=== PATIENT | female | born 1955 | race Caucasian/White ===

== ENCOUNTER → 2018-02-28 | Outpatient (CLI) | payer MEDICARE, BC ==
[2018-02-28 15:01] VITALS: BP 135/76; PULSE 73; BMI 20.9
--- NOTE | 2018-02-28 15:54 | P.GSHP ---
History of Present Illness H&P Date: 02/28/18 Patient is a 63 year old white female status post a lumpectomy in 2001 margins were not clear so had a re-excision and removed lymph nodes. Patient had radiation therapy. She had no chemo-therapy. She had no hormonal therapy. She had had prior biopsies for benign breast disease. Patient now complains of a lump under her right arm. It has not changed since she noted the lump. Initially there was pain associated with nodule. She has had no redness and no fever. Her last mammogram was 2011. She did not want to have the radiation exposure. No nipple discharge or changes and nothing noted in the breast. family history: 1. mother breast cancer 2. grandmother maternal: breast cancer surgical history: 1. right groin hernia 2. tonsilectomy 3. cyst left wrist 4. bunyectomy 5. bone biopsy left knee 6. right breast surgery past medical history: none menrche: 11 : 2, 2 live births first at 17, breast fed: first one menopause: 51 BCP/hormones: none ROS: HEENT: tinnitus both heart: none lung: none GI: none, has had two done last 8 years ago : none - Constitutional Constitutional: Denies chills, Denies fever - EENT Eyes: bilateral as per HPI Ears: bilateral: tinnitus Ears, nose, mouth and throat: Denies headache, Denies sore throat - Breasts Breasts: bilateral: as per HPI - Cardiovascular Cardiovascular: Denies chest pain, Denies shortness of breath - Respiratory Respiratory: Denies cough, Denies 7 - Gastrointestinal Gastrointestinal: Denies abdominal pain, Denies diarrhea, Denies nausea, Denies vomiting - Genitourinary (Female) Genitourinary: Denies dysuria, Denies hematuria - Menstruation Menstruation: Reports postmenopausal - Musculoskeletal Comment: arthritis in past Musculoskeletal: Denies myalgias - Integumentary Integumentary: Denies pruritus, Denies rash - Neurological Neurological: Denies numbness, Denies weakness - Psychiatric Psychiatric: Reports anxiety, Denies depression - Endocrine Endocrine: Denies fatigue, Denies weight change - Hematologic/Lymphatic Comment: none - Allergic/Immunologic Allergic/Immunologic: Reports seasonal allergies Past Medical History Past Medical History: Asthma, Cancer Additional Past Medical History / Comment(s): R BREAST 2002 History of Any Multi-Drug Resistant Organisms: None Reported Past Surgical History: Hernia Repair, Orthopedic Surgery, Tonsillectomy Additional Past Surgical History / Comment(s): L foot bunionectomy. L hand ganglion cyst. BREAST BX x2 Smoking Status: Never smoker - Past Family History Mother Family Medical History: Cancer Additional Family Medical History / Comment(s): breast and uterine cancer. maternal grandmother breast and colon cancer Son(s) Family Medical History: Thyroid Disorder Medications and Allergies Home Medications Medication Instructions Recorded Confirmed Type Biotin 5,000 mcg PO QAM 02/28/18 02/28/18 History Vitamin E (Dl,Tocopheryl Acet) 400 unit PO QAM 02/28/18 02/28/18 History [Vitamin E] Allergies Allergy/AdvReac Type Severity Reaction Status Date / Time grass pollen AdvReac Wheezing Unverified 02/28/18 14:57 Surgical - Exam Vital Signs Pulse BP Pulse Ox 73 135/76 98 02/28/18 14:59 02/28/18 14:59 02/28/18 14:59 - General thin moderate distress - Eyes normal ocular movement - ENT normal pinna, no hearing loss - Neck no masses, trachea midline - Respiratory normal respiratory effort, clear to auscultation - Cardiovascular Rhythm: regular Heart Sounds: normal: S1, S2 - Abdomen Abdomen: soft, non tender, no guarding, no rigid, no rebound - Integumentary no rash, no abnormal pigmentation - Neurologic no disoriented, no combative - Musculoskeletal normal gait, normal posture - Psychiatric oriented to time, oriented to person, oriented to place, speech is normal, memory intact right breast: post lumpectomy and radiation changes no masses right axilla: tightness high in axilla no masses of concern left breast: no masses left axilla: no adenopathy of concern Assessment and Plan Assessment: Impression/plan: 1. Prior history of right breast lumpectomy axillary dissection and radiation therapy 2. last mammogram 2011 3. fullness in the right axilla plan: 1. right breast and axilla ultrasound, patient refuses mammogram at this time 2. await results of ultrasound cc: Padma [place]te[place] ([place]
--- NOTE | 2018-02-28 17:07 | P.PN ---
Progress Note - Text Progress Note Date: 02/28/18 Patient underwent an ultrasound after which it was recommended she have a core biopsy of an area of concern in the axilla. The patient has agreed at this time to bilateral mammogram. This is going to be scheduled in the near future as well as ultrasound core biopsy. She will follow up after these are done. Cc: Dr. Jin
--- NOTE | 2018-03-01 08:06 | USB ---
Reason for exam: clinical finding. History: Patient is postmenopausal, has history of breast cancer at age 47, and has history of high-risk lesion on a previous biopsy at age 43. Family history of breast cancer in maternal grandmother and breast cancer in mother at age 74. Radiation therapy of the right breast, 2000. Lumpectomy of the right breast, 1999. Benign excisional biopsy of the right breast, August 03, 1998. High risk core biopsy of the right breast, July 27, 1998. Excisional biopsy of the right breast. US Breast RT Right complete breast ultrasound includes all four quadrants, the retroareolar region and axilla. Finding demonstrates a 0.9 x 1.0 x 0.6cm solid, hypoechoic lesion at the axilla and a 0.8 x 0.6 x 0.5cm solid, hypoechoic lesion at the axilla. These are rounded and hypoechoic and located adjacent to each other. The entire breast was scanned. Patient declined mammogram. These results were verbally communicated with the patient and result sheet given to the patient on 02/28/18. ASSESSMENT: Suspicious, BI-RAD 4 RECOMMENDATION: Surgical consultation and ultrasound core biopsy of the right breast. Called with mammographic findings and has scheduled an appointment for the patient for 02/28/[address] Matta. PRELIMINARY REPORT CALLED AND FAXED TO DR. MATTA ON 02/28/18.
== END | disposition home or self-care (01) ==
LOC: WWCWWP 14:48
PROVIDERS: ATTEND Surgery
DX: N64.4 Mastodynia (principal)

== ENCOUNTER → 2018-03-01 | Outpatient (CLI) | payer MEDICARE, BC ==
--- NOTE | 2018-03-04 08:51 | MM ---
Reason for exam: additional evaluation requested from prior study. Last mammogram was performed 5 years and 9 months ago. History: Patient is postmenopausal, has history of breast cancer at age 47, and has history of high-risk lesion on a previous biopsy at age 43. Family history of breast cancer in maternal grandmother and breast cancer in mother at age 74. Radiation therapy of the right breast, 2000. Lumpectomy of the right breast, 1999. Benign excisional biopsy of the right breast, August 03, 1998. High risk core biopsy of the right breast, July 27, 1998. Excisional biopsy of the right breast. Physical Findings: Breast exam performed by Dr. Matta. MG 3D Diag Mammo W/Cad SOMMER Bilateral CC and MLO view(s) were taken. Prior study comparison: June 05, 2012, CAD bilateral diagnostic mammogram. The breast tissue is heterogeneously dense. This may lower the sensitivity of mammography. Post surgical changes on the right breast. 9mm nodular asymmetry at the axilla likely corresponds to the finding on yesterday's ultrasound. 1.1cm oval focal asymmetry upper inner quadrant left breast not seen previously. It could not be identified on the MLO view. These results were verbally communicated with the patient and result sheet given to the patient on 03/01/18. ASSESSMENT: Incomplete: need additional imaging evaluation, BI-RAD 0 RECOMMENDATION: Ultrasound of the left breast. (upper inner quadrant)
--- NOTE | 2018-03-04 08:53 | USB ---
Reason for exam: additional evaluation requested from abnormal screening. History: Patient is postmenopausal, has history of breast cancer at age 47, and has history of high-risk lesion on a previous biopsy at age 43. Family history of breast cancer in maternal grandmother and breast cancer in mother at age 74. Radiation therapy of the right breast, 2000. Lumpectomy of the right breast, 1999. Benign excisional biopsy of the right breast, August 03, 1998. High risk core biopsy of the right breast, July 27, 1998. Excisional biopsy of the right breast. US Breast Limited LT Left limited breast ultrasound including focal area of concern, retroareolar and axilla demonstrates no cystic or solid lesion seen. Scanned upper inner quadrant. Right assessment, suspicious, ultrasound core axilla and surgical consult. These results were verbally communicated with the patient and result sheet given to the patient on 03/01/18. ASSESSMENT: Probably benign, BI-RAD 3 RECOMMENDATION: Follow-up diagnostic mammogram of the left breast in 6 months. Right breast recommendations made seperately. DAGMARD
== END | disposition home or self-care (01) ==
LOC: RADMAMWWP 14:06
PROVIDERS: ATTEND Surgery
DX: N63.10 Unspecified lump in the right breast, unspecified quadrant (principal); N63.20 Unspecified lump in the left breast, unspecified quadrant; R92.8 Other abnormal and inconclusive findings on diagnostic imaging of breast
CPT/HCPCS: 77066; 76642; G0279; 77062

== ENCOUNTER 2018-03-11 07:59 | Day surgery (SDC) | payer MEDICARE, BC ==
[2018-03-11 08:29] VITALS: RESP 18; TEMP 97.6
[2018-03-11 10:28] VITALS: BP 130/69; PULSE 68
--- NOTE | 2018-03-11 12:44 | US ---
EXAMINATION TYPE: US core biopsy lymph node DATE OF EXAM: 03/11/2018 HISTORY: Right axillary mass, palpable node. Correlation to prior right breast ultrasound 02/28/2018. FINDINGS: Maximal barrier technique was utilized. The skin overlying a suitable path to the patient' s right axillary nodes, mass was localized with ultrasound and the overlying skin prepped and draped. Ultrasound was utilized with sterile technique. Lidocaine was used for local anesthesia. A skin n ick was made with a scalpel. An 18-gauge needle was advanced under direct ultrasound guidance and co re specimen obtained of the mass, right axillary node. Specimen submitted in formalin to Pathology. Following the procedure, hemostasis achieved and the patient is discharged in stable condition witho ut complication. IMPRESSION:STATUS POST ULTRASOUND GUIDED CORE BIOPSY OF right axillary nodes, MASS, PATHOLOGY IS PEND ING. THIS PROCEDURE IS PERFORMED BY THE UNDERSIGNED.
== END 2018-03-11 10:25 | disposition home or self-care (01) ==
LOC: RADPROMAIN 07:59
PROVIDERS: ATTEND Surgery
DX: C77.3 Secondary and unspecified malignant neoplasm of axilla and upper limb lymph nodes (principal)
CPT/HCPCS: 38505; 76942; 88305; 88341; 88342

== ENCOUNTER → 2018-03-21 | Outpatient (CLI) | payer MEDICARE, BC ==
[2018-03-21 08:59] VITALS: BP 138/75; PULSE 67; TEMP 97.6; BMI 20.6
--- NOTE | 2018-03-21 09:25 | P.PN ---
Progress Note - Text Progress Note Date: 03/21/18 The patient is a 63-year-old white female who is status post right breast lumpectomy and node biopsy in 2001. She presented with fullness in her right axilla. A ultrasound was performed which revealed suspicious adenopathy and a core biopsy was obtained on 03/21/2018 which was positive for breast cancer. The patient at this time has no complaints related to the biopsy. Physical exam: Examination of the area of biopsy reveals no evidence of hematoma or infection Impression/plan: 1. 63-year-old white female status post right breast lumpectomy radiation therapy and node evaluation in 2001 She presents with right axillary adenopathy and core biopsy 03/11/18 positive for metastatic breast cancer. 2. Would consider metastatic workup with PET scan 3. Follow with medical and radiation oncology 4. Present case at tumor board 5. Follow up here in two weeks CC: Padma Jin
--- NOTE | 2018-03-22 14:18 | P.PN ---
Progress Note - Text Progress Note Date: 03/22/18 The patient is a 63-year-old white female status post right breast lumpectomy and node biopsy in 2001. She recently was noted to have a metastatic deposit of adenocarcinoma in a right axillary node. There is concern that she may have more widely metastatic disease.
== END | disposition home or self-care (01) ==
LOC: WWCWWP 08:47
PROVIDERS: ATTEND Surgery
DX: Z53.9 Procedure and treatment not carried out, unspecified reason (principal)

== ENCOUNTER → 2018-03-26 | Outpatient (CLI) | payer MEDICARE, BC ==
--- NOTE | 2018-03-26 14:54 | BD ---
EXAMINATION TYPE: Axial Bone Density DATE OF EXAM: 03/26/2018 COMPARISON: NONE CLINICAL HISTORY: Postmenopausal female. Osteoporosis screening. Height: 64.5 IN Weight: 120 LBS RISK FACTORS HISTORY OF: Active: YES MEDICATIONS: Additional Medications: NONE Additional History: BREAST CANCER WITH RADIATION AGE 47 EXAM MEASUREMENTS: Bone mineral densitometry was performed using the [employer] System. Bone mineral density as measured about the Lumbar spine is: ----- L1-L4(G/cm2): 0.986 T Score Values are as follows: ----- L2: -1.5 ----- L3: -1.2 ----- L4: -2.2 ----- L1-L4: -1.6 Bone mineral density BASELINE Bone mineral density about the R hip (g/cm2): 1.003 Bone mineral density about the L hip (g/cm2): 0.907 T Score values are as follows: -----R Neck: -0.3 -----L Neck: -0.9 -----R Total: -0.2 -----L Total: -0.7 Bone mineral density BASELINE IMPRESSION: Osteopenia (T Score between -2.5 and -1). There is slightly increased risk of fracture and the patient may be considered for treatment. Re-Screen 2-5 years. NOTE: T-SCORE=SD OF THE YOUNG ADULT MEAN.
== END | disposition home or self-care (01) ==
LOC: RADBDWWP 07:07
PROVIDERS: ATTEND Surgery
DX: M85.80 Other specified disorders of bone density and structure, unspecified site (principal); Z85.3 Personal history of malignant neoplasm of breast
CPT/HCPCS: 77080

== ENCOUNTER → 2018-03-28 | Outpatient (CLI) | payer MEDICARE, BC ==
--- NOTE | 2018-03-28 11:08 | CT ---
EXAMINATION TYPE: CT ChestAbdPelvis w con DATE OF EXAM: 03/28/2018 COMPARISON: Recent right axillary lymph node biopsy dated 03/11/2018 HISTORY: History of breast cancer CT DLP: 450.8 mGycm. Automated Exposure Control for Dose Reduction was Utilized. CONTRAST: CT scan of the thorax, abdomen and pelvis is performed with IV Contrast, patient injected with 100 mL of Isovue 300. FINDINGS: LUNGS: Minimal left basilar subsegmental atelectasis is noted. Bandlike bilateral pleural parenchymal scarring is seen. There is a solitary 3 mm solid pulmonary nodule at the right lower lobe anterior m argin on series 3 image 52. Within the peripheral right upper lobe there is subpleural reticulation f rom minimal fibrosis, likely sequela post radiation change. Mild biapical pleural parenchymal scarrin g is noted. The lungs are grossly clear, there is no concerning parenchymal mass or nodule identified . There is no pleural effusion or pneumothorax seen. The tracheobronchial tree is patent. MEDIASTINUM: There are no greater than 1 cm hilar or mediastinal lymph nodes. No pericardial effusi on is seen. No suspicious internal mammary or mediastinal adenopathy is seen. No suspicious left axi llary adenopathy is noted. OTHER: As seen on the prior axillary ultrasound there are multiple abnormal right axillary lymph node s/soft tissue masses that are rounded in morphology and matted against fibrotic changes of prior righ t axillary lymph node dissection and prior radiation with focal overlying skin thickening such as on series 3 image 15. The most cranial lymph node is seen at the level of the axillary vein and artery j ust anterior to the axillary artery (4 mm anterior). This measures 4 mm in short axis and is less saeed picious than the more inferior soft tissue masses/lymph nodes. Inferior to this adjacent to surgical clip seen on axial series 3 image 16 and coronal series 8 image 9 there is a 7 mm short axis lymph no de that is located approximately 2 mm below the left axillary vein on sagittal imaging. A more suspic ious arterially enhancing lymph node/soft tissue mass measuring 7 mm in short axis is seen on axial s eries 3 image 19 and sagittal series 8 image 9 with adjacent 8 mm short axis lesion on series 3 image 20 and series 8 image 8. LIVER/GB: Within the right hepatic lobe there is a simple cyst with a very thin solitary septa that i s perforate lobulated measuring 4.3 x 3.6 cm. Other smaller hepatic cysts are seen within the left he patic lobe on series 3 image 53 and image 57. No suspicious hepatic lesions are identified. No intrah epatic biliary ductal dilatation. No cholelithiasis. PANCREAS: Pancreas enhances homogeneously. No pancreatic ductal dilatation. SPLEEN: No splenomegaly. ADRENALS: No nodularity or thickening. KIDNEYS: Kidneys enhance and excrete symmetrically other than a too small to accurately characterize anterior cortical left midpole renal lesion, statistically a cyst. Left renal sinus cysts are also se en without hydronephrosis bilaterally. BOWEL: Moderate amount retained colonic stool limits evaluation of the large bowel. No large or small bowel dilatation to indicate obstruction. GENITAL ORGANS: The uterus is diffusely heterogenous containing multiple hypoattenuated areas and oren e calcified exophytic probable leiomyomas. Ultrasound is recommended for further characterization. LYMPH NODES: No greater than 1cm abdominal or pelvic lymph nodes are appreciated. OSSEOUS STRUCTURES: No suspicious osseous lesion. Osseous structures appear intact. IMPRESSION: 1. Findings compatible with local recurrence in the right axilla as detailed above without suspicious findings to suggest visceral or osseous metastasis within the chest, abdomen, or pelvis. There is a 3 mm right basilar pulmonary nodule for which surveillance is recommended to ensure this does not rep resent early metastasis. However, this is of low suspicion at this time. 2. Simple appearing hepatic cysts. The largest contains a single thin internal septation.
== END | disposition home or self-care (01) ==
LOC: RADCTMAIN 08:38
PROVIDERS: ATTEND Surgery
DX: K76.89 Other specified diseases of liver (principal); R91.1 Solitary pulmonary nodule; Z85.3 Personal history of malignant neoplasm of breast
CPT/HCPCS: 82565; 84520; 71260; 74177; 36415; Q9967

== ENCOUNTER → 2018-04-03 | Outpatient (CLI) | payer MEDICARE, BC ==
--- NOTE | 2018-04-03 15:08 | NM ---
EXAMINATION TYPE: NM bone scan whole body DATE OF EXAM: 04/03/2018 COMPARISON: CT chest abdomen and pelvis March 28, 2018. HISTORY: Newly diagnosed right-sided breast cancer Delayed whole-body scanning was performed following the injection of 24.8 mCi Tc 99m MDP. Images acq uired 3 hours post injection. Spot images of the thorax abdomen and pelvis are acquired. FINDINGS: There is no suspicious increased uptake of radiotracer to suggest metastatic disease to the bone mar row or other suspicious abnormality. Findings correlate with recent CT. IMPRESSION: As above.
== END | disposition home or self-care (01) ==
LOC: RADNMMAIN 10:43
PROVIDERS: ATTEND Surgery
DX: C50.919 Malignant neoplasm of unspecified site of unspecified female breast (principal)
CPT/HCPCS: 78306; A9503

== ENCOUNTER → 2018-04-05 | Outpatient (CLI) | payer MEDICARE, BC ==
[2018-04-05 12:36] VITALS: BMI 19.7
--- NOTE | 2018-04-05 13:05 | P.PN ---
Progress Note - Text Progress Note Date: 04/05/18 The patient is a 63-year-old white female who approximately 16 years ago underwent a right breast lumpectomy and axillary node dissection. She recently returned with fullness in the right axilla. Core biopsy revealed metastatic disease to a lymph node in the axilla. CAT scan revealed several nodes of concern in this area with some proximity to the axillary vessels. The patient has subsequently had a computed tomography scan of the chest abdomen and pelvis which did not reveal any visceral metastatic disease. In addition a bone scan was performed which did not reveal any suspicious uptake to suggest metastatic disease to the bones. On physical examination the area of the axilla appears to be somewhat mobile and there may be the possibility of surgical debulking prior to radiation therapy. The patient is scheduled to undergo an MRI of bilateral breast week and will follow up with medical and radiation oncology. Final recommendation as to treatment options will be made after the MRI. cc: Dr. Jin, Myra Rouse
== END | disposition home or self-care (01) ==
LOC: WWCWWP 11:30
PROVIDERS: ATTEND Surgery
DX: Z53.9 Procedure and treatment not carried out, unspecified reason (principal)

== ENCOUNTER → 2018-04-10 | Outpatient (CLI) | payer MEDICARE, BC ==
--- NOTE | 2018-04-11 15:02 | BMR ---
EXAMINATION TYPE: MR breast BILAT wo/w con DATE OF EXAM: 04/10/2018 COMPARISON: CT chest, abdomen, and pelvis dated 03/28/2018 and recent right axillary lymph node biopsy of 03/11/2018. Nuclear medicine bone scan dated 04/03/2018. HISTORY: Malignant neoplasm, right breast TECHNIQUE: A series of fat and water weighted images in the long and short axis views of both breasts are obtained in conjunction with dynamic contrast MRI with subtraction technique. The patient was i njected with 6 mL intravenous Gadavist gadolinium contrast. Three-dimensional and additional postpr ocessing imaging is created on independent workstation and reviewed during official interpretation of this study. FINDINGS: There is mild asymmetric background parenchymal enhancement in breasts that are composed of heterogenous fibroglandular tissue. Post therapy changes are seen on the right with breast size asym metry, susceptibility artifact from surgical clips, skin thickening, and lumpectomy postsurgical flannery ge. There is inflammatory change within the right axilla with multiple right axillary surgical clips crea ting susceptibility artifact from prior axillary node dissection. The previously seen, biopsy-proven recurrence, pathologic right axillary adenopathy are much better depicted and described in the CT [facility] [facility] abdomen pelvis dated 03/28/2018 due to increased spatial resolution and no surrounding artifact fro m the surgical clips. However there are at least 5 abnormal morphologically appearing enhancing right axillary lymph nodes measuring up to 6 mm in short axis. Additionally inflammatory change does exten d to the lateral margin of the pectoralis major musculature without discrete muscular involvement. With regards to the bilateral breasts there are is no suspicious mass or nodule mass enhancement of e ither breast. No suspicious internal mammary adenopathy. No suspicious left axillary or intramammary adenopathy. Partial visualization of the known right hepatic cyst is also seen on T2-weighted images. IMPRESSION: BI-RADS 6-Known biopsy-proven malignancy. Biopsy-proven right axillary lymph node recurrence with at least 5 suspicious right axillary lymph nodes approximating the right axillary artery and vein is bet ter seen on the chest CT of abdomen pelvis dated 03/28/2018 given better spatial resolution. Surroundi ng inflammatory change and linear enhancement abuts the lateral margin of the right pectoralis major muscle without discrete muscular involvement. No additional suspicious mass or nonmass enhancement o n MR within either breast. 2. No left axillary adenopathy, bilateral internal mammary adenopathy, or intramammary adenopathy. 3. Partial visualization of the known right hepatic cyst.
== END | disposition home or self-care (01) ==
LOC: RADMRIMAIN 11:01
PROVIDERS: ATTEND Surgery
DX: C50.911 Malignant neoplasm of unspecified site of right female breast (principal)
CPT/HCPCS: 0159T; C8908; A9581; 77059

== ENCOUNTER → 2018-10-07 | Outpatient (CLI) | payer MEDICARE, BC ==
--- NOTE | 2018-10-07 14:19 | CT ---
EXAMINATION TYPE: CT chest abdomen w con DATE OF EXAM: 10/07/2018 COMPARISON: 03/28/2018 HISTORY: Malignant neoplasm of upper-inner quadrant right breast CT DLP: 711 mGycm. Automated Exposure Control for Dose Reduction was Utilized. CONTRAST: CT scan of the thorax and abdomen is performed with IV Contrast, patient injected with 80 mL of Isovu e 300. FINDINGS: LUNGS: Biapical pleural parenchymal scarring is present. Minimal groundglass opacity directly adjacen t to the axillary node dissection likely represents radiation fibrosis and/or pneumonitis on image 16 . Similarly this is seen adjacent to the lumpectomy site in a subpleural location on image 22 and 23. No new suspicious pulmonary nodule or mass is identified. The previously seen 3 mm right lower lobe pulmonary nodule is less conspicuous on today's examination. MEDIASTINUM: There are no greater than 1 cm hilar or mediastinal lymph nodes. No pericardial effusi on is seen. OTHER: The previously seen matted adenopathy surrounding the right axillary node dissection such as o n series 3 image 16 has resolved. No suspicious or enlarged right axillary lymph nodes are noted. Rig ht upper outer quadrant lumpectomy changes are seen. No suspicious internal mammary adenopathy is rome ntified. In the right axilla some fat stranding likely represents postoperative/post therapy change. LIVER/GB: There is similar minimal left intrahepatic biliary ductal dilatation. A cystic hepatic lesi on is unchanged in size measuring 4.3 x 3.6 cm without new internal complexity. Stable thin internal septations are noted. Left hepatic cyst is also seen measuring 7 mm. PANCREAS: No significant abnormality is seen. SPLEEN: No significant abnormality is seen. ADRENALS: No nodularity or thickening. KIDNEYS: There is again note of left-sided renal sinus cysts. Again there is a too small to accuratel y characterize anterior left midpole cortical lesion. BOWEL: No significant abnormality is seen. No dilated large or small bowel. LYMPH NODES: No greater than 1cm abdominal or pelvic lymph nodes are appreciated. OSSEOUS STRUCTURES: There is very mild anterolisthesis of L3 on L4, likely on a degenerative basis. N o pars interarticularis defects. No new suspicious osseous lesions are seen. IMPRESSION: 1. Resolution of the previously seen matted lymph nodes surrounding the right axillary vero dissecti on. No new axillary or internal mammary adenopathy. 2. No new findings to suggest metastasis within the chest nor abdomen.
== END | disposition home or self-care (01) ==
LOC: RADCTMAIN 11:02
PROVIDERS: ATTEND Radiology Radiation Oncology
DX: C50.211 Malignant neoplasm of upper-inner quadrant of right female breast (principal)
CPT/HCPCS: 82565; 84520; 71260; 74160; 36415; Q9967

== ENCOUNTER → 2019-03-04 | Outpatient (CLI) | payer MEDICARE, BC ==
--- NOTE | 2019-03-04 09:24 | MM ---
Reason for exam: additional evaluation requested from prior study. Last mammogram was performed 1 year ago. History: Patient is postmenopausal, has history of breast cancer at age 47, and has history of high-risk lesion on a previous biopsy at age 43. Family history of breast cancer in maternal grandmother and breast cancer in mother at age 74. Excisional biopsy of the right breast, March 11, 2018. Radiation therapy of the right breast, 2000. Lumpectomy of the right breast, 1999. Benign excisional biopsy of the right breast, August 03, 1998. High risk core biopsy of the right breast, July 27, 1998. Excisional biopsy of the right breast. Physical Findings: Nurse did not find any significant physical abnormalities on exam. MG 3D Diag Mammo W/Cad SOMMER Bilateral CC and MLO view(s) were taken. XCCL view(s) were taken of the right breast. Prior study comparison: March 01, 2018, bilateral MG 3d diag mammo w/cad SOMMER. June 05, 2012, CAD bilateral diagnostic mammogram. The breast tissue is heterogeneously dense. This may lower the sensitivity of mammography. Finding #1: Architectural distortion in the right breast consistent with previous surgery. Finding #2: There are typically benign calcifications in both breasts. These results were verbally communicated with the patient and result sheet given to the patient on 03/04/19. ASSESSMENT: Benign, BI-RAD 2 RECOMMENDATION: Follow-up diagnostic mammogram of both breasts in 1 year.
== END | disposition home or self-care (01) ==
LOC: RADMAMWWP 08:04 → EEVIPCON 08:20
PROVIDERS: ATTEND Internal Medicine Hematology & Oncology
DX: Z08 Encounter for follow-up examination after completed treatment for malignant neoplasm (principal); Z85.3 Personal history of malignant neoplasm of breast
CPT/HCPCS: 77066; G0279; 77062

== ENCOUNTER → 2019-10-31 | Outpatient (CLI) | payer MEDICARE, BC ==
--- NOTE | 2019-10-31 17:37 | NM ---
EXAMINATION TYPE: NM bone scan whole body DATE OF EXAM: 10/31/2019 COMPARISON: 04/03/2018 HISTORY: 64-year-old female upper back pain for 2 months, twisting injury, patient with history of br east cancer. TECHNIQUE: Delayed whole-body scanning was performed following the injection of 22.2 mCi Tc 99m MDP. Images acquired 3.5 hours post injection. FINDINGS: New foci of tracer activity involving 2 left posterior ribs and probably 2 sites on the right in the region of the costovertebral junctions. No other suspicious foci of tracer activity. IMPRESSION: New foci involving a couple left posterior ribs and a couple areas near the right costovertebral junc tions. Careful clinical correlation recommended with patient's trauma history in order to differentia te post traumatic tracer activity from new osseous metastatic disease.
== END | disposition home or self-care (01) ==
LOC: RADNMMAIN 10:07
PROVIDERS: ATTEND Internal Medicine Hematology & Oncology
DX: C50.411 Malignant neoplasm of upper-outer quadrant of right female breast (principal); R93.7 Abnormal findings on diagnostic imaging of other parts of musculoskeletal system; J30.1 Allergic rhinitis due to pollen; J30.81 Allergic rhinitis due to animal (cat) (dog) hair and dander
CPT/HCPCS: 78306; A9503

== ENCOUNTER 2019-12-21 20:03 | Inpatient (IN) | payer MEDICARE, BC ==
[2019-12-21] MEDS ORDERED: KETOROLAC 60 MG/2 ML VIAL IM STA (20:36)
[2019-12-21] MEDS ORDERED: HYDROcodone/APAP 10-325MG 1 EACH TAB PO ONE (20:36)
--- NOTE | 2019-12-21 20:59 | XR ---
EXAMINATION TYPE: XR ribs bilat w pa chest xray DATE OF EXAM: 12/21/2019 COMPARISON: Chest CT scan October 07, 2018 HISTORY: Rib pain TECHNIQUE: 9 views FINDINGS: There are fractures of the lateral aspect of the left sixth and seventh ribs with some rib destruction. There are clips at the right axilla. There is right mastectomy. The lungs are clear of i nfiltrate. There is no heart failure. Heart and mediastinum are normal. There is 10 mm lytic lesion i n the inferior aspect of the glenoid of the left scapula. There is probably a second lytic lesion rebeca t measures 7 mm in the lateral scapula. IMPRESSION: Pathologic fractures of the left sixth and seventh ribs consistent with metastatic diseas e. Lytic lesions in the left scapula also consistent with metastatic disease. No acute lung disease. Normal heart. There is some progression of disease compared to the left rib x- ray of 10/27/2019.
[2019-12-21] MEDS ORDERED: SODIUM CHLORIDE 0.9% 500 ML 500 ML IV ONE (21:37)
[2019-12-21] MEDS ORDERED: HYDROmorphone 0.5 MG/0.5 ML SYRINGE IVP STA (21:37)
[2019-12-21] MEDS ORDERED: NALOXONE 0.4 MG/ML 1 ML VIAL IV PRN (22:08)
--- NOTE | 2019-12-21 22:08 | ED ---
General Adult HPI - General Chief complaint: Back Pain/Injury Stated complaint: Back pain Time Seen by Provider: 12/21/19 20:23 Source: patient Mode of arrival: ambulatory Limitations: no limitations - History of Present Illness Initial comments: Patient is a 64-year-old female past history of breast cancer who presents emergency room with reported left sided back pain. The patient states that the pain has been somewhat chronic for her. She is a history of breast cancer and had a bone scan done in October which showed fractured ribs on the left side. They were unsure if it was related to metastatic disease however the patient has been managing it with [id number] pain medications. States that earlier tonight she began having increasing pain which was located over the left paraspinal region and into the left shoulder. Denies any trauma. She called Dr. March who wrote her for Flexeril and told her to take Advil. States she took these medications without improvement. Denies known current history of metastatic disease. Current is on hormone therapy. She denies any midline back pain. No fevers or chills. There are no alleviating, precipitating or modifying factors - Related Data Home Medications Medication Instructions Recorded Confirmed Vitamin E (Dl,Tocopheryl Acet) 400 unit PO AC-SUPPER 02/28/18 12/21/19 [Vitamin E] Cyclobenzaprine [Flexeril] 10 mg PO TID PRN 12/21/19 12/21/19 Letrozole [Femara] 2.5 mg PO AC-SUPPER 12/21/19 12/21/19 Allergies Allergy/AdvReac Type Severity Reaction Status Date / Time dog dander Allergy Cough Verified 12/21/19 22:07 grass pollen AdvReac Wheezing Verified 12/21/19 22:07 Review of Systems ROS Statement: Those systems with pertinent positive or pertinent negative responses have been documented in the HPI. ROS Other: All systems not noted in ROS Statement are negative. Past Medical History Past Medical History: Asthma, Cancer Additional Past Medical History / Comment(s): R BREAST 2001 History of Any Multi-Drug Resistant Organisms: None Reported Past Surgical History: Breast Surgery, Hernia Repair, Orthopedic Surgery, Tonsillectomy Additional Past Surgical History / Comment(s): L foot bunionectomy,. L hand ganglion cyst. BREAST BX x2. septum repair 2001. lymph node biopsy right arm pit 2018 Past Anesthesia/Blood Transfusion Reactions: No Reported Reaction Past Psychological History: No Psychological Hx Reported Smoking Status: Never smoker Past Alcohol Use History: None Reported Past Drug Use History: None Reported - Past Family History Mother Family Medical History: Cancer Additional Family Medical History / Comment(s): breast and uterine cancer. maternal grandmother breast and colon cancer Son(s) Family Medical History: Thyroid Disorder General Exam Limitations: no limitations General appearance: alert, other (appears in significant pain) Eye exam: Present: normal appearance, PERRL, EOMI. Absent: scleral icterus, conjunctival injection, periorbital swelling Neck exam: Present: normal inspection. Absent: tenderness, meningismus, lymphadenopathy Respiratory exam: Present: normal lung sounds bilaterally. Absent: respiratory distress, wheezes, rales, rhonchi, stridor Cardiovascular Exam: Present: regular rate, normal rhythm, normal heart sounds. Absent: systolic murmur, diastolic murmur, rubs, gallop, clicks Back exam: Present: paraspinal tenderness (on the left near T4-T8. Also has anterior left sided chest wall pain to palpation. No overlying skin changes. Denies tenderness to palpation of spinous processes) Neurological exam: Present: alert, oriented X3, CN II-XII intact Psychiatric exam: Present: normal affect, normal mood Skin exam: Present: warm, dry, intact, normal color. Absent: rash Course Vital Signs 12/21/19 12/21/19 20:11 23:32 Temperature 97.9 F Pulse Rate 92 87 Respiratory 18 18 Rate Blood Pressure 135/92 130/78 O2 Sat by Pulse 96 98 Oximetry EKG Findings - EKG Comments: EKG Findings:: EKG demonstrates sinus rhythm with ventricular rate of 71. IN interval 140. QRS 80. QTC of 412. No acute ST segment depressions concerning for ischemic changes Medical Decision Making - Medical Decision Making Upon arrival the patient's placed in room 8. A thorough history and physical exam was performed. I did give the patient [place] 10 mg. She is also given a shot of Toradol. The patient was sent over for a bilateral rib x-ray as well as a portable chest which demonstrates pathologic fractures of the left sixth and seventh rib with lytic lesions left scapula. Discuss results with the patient. She is reevaluated and continues to have10/10 pain. Because of this I did give the patient dose of Dilaudid. Discuss the diagnosis, differential and treatment options. The patient is reevaluated and her pain is still uncontrolled. I called and discussed the case with Dr. March who requested medicine admission with oncology and radiation oncology to consult. I did discuss this with the patient and she did agree to admission. I spoke with Dr. Robles who is the accepting doctor. Pain medications were ordered for the floor. The patient was transported to the floor in stable condition - Lab Data Result diagrams: 12/21/19 22:36 12/21/19 22:36 Disposition Clinical Impression: Back pain, Lytic bone lesions on xray, HX: breast cancer Disposition: ADMITTED IP TO THIS [facility] Condition: Stable Is patient prescribed a controlled substance at d/c from ED?: No Decision to Admit Reason: Admit from EC Decision Date: 12/21/19 Decision Time: 22:08
[2019-12-21] MEDS: SODIUM CHLORIDE 0.9% 1,000 ML IV SCH (22:37)
[2019-12-21 22:47] LABS: Basophils % (A) 0 %; Eosinophils # (A) 0.3 k/uL (0-0.7); Eosinophils % (A) 3 %; HCT 44.1 % (34.0-46.0); Lymphocytes # (A) 0.6 k/uL (1.0-4.8); Lymphocytes % (A) 6 %; MCH 28.5 pg (25.0-35.0); MCHC 31.7 g/dL (31.0-37.0); Mean Platelet Volume 6.5; Monocytes # (A) 0.6 k/uL (0-1.0); Monocytes % (A) 7 %; Neutrophils # (A) 7.6 k/uL (1.3-7.7); Neutrophils % (A) 82 %; Platelet Count 299 k/uL (150-450); RBC 4.91 m/uL (3.80-5.40); RDW 12.3 % (11.5-15.5); WBC 9.3 k/uL (3.8-10.6)
[2019-12-21 23:08] LABS: ALT 25 U/L (4-34); AST 39 U/L (14-36); African American GFR (CKD) >90 (>60 ml/min/1.73 sqM); Albumin 4.4 g/dL (3.5-5.0); Alkaline Phosphatase 108 U/L (38-126); Anion Gap 10 mmol/L; Blood Urea Nitrogen 27 mg/dL (7-17); Calcium 9.8 mg/dL (8.4-10.2); Carbon Dioxide 27 mmol/L (22-30); Chloride 97 mmol/L (98-107); Glucose 128 mg/dL (74-99); Non-African American GFR(CKD) 83 (>60 ml/min/1.73 sqM); Potassium 4.4 mmol/L (3.5-5.1); Sodium 134 mmol/L (137-145); Total Bilirubin 0.3 mg/dL (0.2-1.3); Total Protein 7.5 g/dL (6.3-8.2)
[2019-12-22] MEDS ORDERED: CYCLOBENZAPRINE 10 MG TAB PO PRN
[2019-12-22] MEDS: HYDROmorphone 1 MG/ML 1 ML SYRINGE IVP PRN ×4 (04:15→16:22)
[2019-12-22] MEDS: HYDROcodone/APAP 5-325MG 1 EACH TAB PO PRN ×4 (05:04→19:18)
[2019-12-22] MEDS: SODIUM CHLORIDE 0.9% 1,000 ML IV SCH ×2 (05:05→19:20)
[2019-12-22 14:39] LABS: Magnesium 1.9 mg/dL (1.6-2.3)
[2019-12-22] MEDS: IOPAMIDOL CONTRAST (ORAL USE) VIAL PO PRN ×2 (15:01→15:53)
--- NOTE | 2019-12-22 15:25 | P.CONS ---
History of Present Illness - Reason for Consult Consult date: 12/22/19 Metastatic disease to bone, hx breast cancer Requesting physician: Yvette Kingston - Chief Complaint Rib Pain - History of Present Illness Jacquie is a very pleasant 64 year old female patient well known to Dr. Canas for her history of right sided breast cancer. She was diagnosed with R Breast cancer in September of 2001, then had a biopsy revealing 8 mm Grade I infiltrating Lobular carcinoma, was treated with L partial mastectomy (10/08/2001) without residual disease, SLNB negative (0-1) 4 additional nodes were negative (total 0- 45). She received XRT to R Breast (Dr Cai) and offered adjuvant Endocrine therapy by myself, which she declined. She did well until March 2018 when she presented with painful fullness in R axilla, U/S revealed suspecious R axillary lymphadenopathy(1.0X0.9X0.6 cm and 0.8X0.6X0.5 cm). She had R US-Guided lymphadenopathy on 03/11/18 revealing "Metastatic Breast Cancer" according to Dr Gomes, Pathologist. The patient had CT Scan of CAP which again identified right axillary lymphadenopathy, but no metastatic disease, bone scan was negative for metastatic disease to bone. Further analysis revealed ER/AZ 80%/0% and [id number] nefative (0 by IHC). She agreed to Letrozole at that time 04/16/18: Feels Ok,Breast MRI: No abnormality in either breast, R axillary lymphadenopathy with direct involvement of axillary artery/vein. 01/21/19: Feels Ok, tolerating Femara well, CT Scan: Resolution of Lymphadenopathy. 07/22/19: Feels well, tolerating Femara well, no constitutional signs of malignancy 10/27/19-Here she presented for an acute visit. Pt states she has been having to sleep differently since Oct 03 because of the pain in her back, she thought she tore a muscle in her her back in Apr and this feels similar, pain is more persistent, there is pressure in her right axilla, she thinks it could be related to how she is having to position her arm while sleeping, she used an aspirin and that helped with the pains but the pain has returned. The ANCHOR TACK PULLER that examined Jacquie ordered imaging with xrays and bone scan. New foci in the left posterior ribs and costovertebral margin revealed on the bone scan. Patient was offered further testing with CT scans and potential biopsy, she refused at that time and was persistent that she had "just pulled a muscle". She was seen again in November to follow-up on this and again refused further imaging stating she was feeling better. She now presents to [facility] with intractable pain in her left side. New imaging rib reveals findings consistent with pathologic fractures. Concerning for metastatic cancer a CT scan Chest, Abdomen, and pelvis has been ordered. She admits to nausea and vomiting this am, mild headaches. She is rigid in bed and very apprehensive to make movements. When we discussed prior scans and further work-up she is again apprehensive. I explained that if this is indeed metastatic breast cancer it is highly treatable and she would not have to endure this much pain. Brain imaging is also recommended but patient would like her pain controlled first before MRI brain is completed. Review of Systems A 14 point review of systems assessed and completed and all negative except HPI Past Medical History Past Medical History: Asthma, Cancer Additional Past Medical History / Comment(s): R BREAST 2002 History of Any Multi-Drug Resistant Organisms: None Reported Past Surgical History: Breast Surgery, Hernia Repair, Orthopedic Surgery, Tonsi llectomy Additional Past Surgical History / Comment(s): L foot bunionectomy,. L hand ganglion cyst. BREAST BX x2. septum repair 2001. lymph node biopsy right arm pit 2018 Past Anesthesia/Blood Transfusion Reactions: No Reported Reaction Past Psychological History: No Psychological Hx Reported Smoking Status: Never smoker Past Alcohol Use History: None Reported Past Drug Use History: None Reported - Past Family History Mother Family Medical History: Cancer Additional Family Medical History / Comment(s): breast and uterine cancer. maternal grandmother breast and colon cancer Son(s) Family Medical History: Thyroid Disorder Medications and Allergies Home Medications Medication Instructions Recorded Confirmed Type Vitamin E (Dl,Tocopheryl Acet) 400 unit PO AC-SUPPER 02/28/18 12/21/19 History [Vitamin E] Cyclobenzaprine [Flexeril] 10 mg PO TID PRN 12/21/19 12/21/19 History Letrozole [Femara] 2.5 mg PO AC-SUPPER 12/21/19 12/21/19 History Allergies Allergy/AdvReac Type Severity Reaction Status Date / Time dog dander Allergy Cough Verified 12/21/19 22:07 grass pollen AdvReac Wheezing Verified 12/21/19 22:07 Physical Exam Vitals: Vital Signs Temp Pulse Pulse Resp BP BP Pulse Ox 12/22/19 12:26 97.4 F L 63 16 125/76 94 L 12/22/19 04:32 98.3 F 79 20 136/85 96 12/22/19 00:16 96.3 F L 70 16 133/71 95 12/21/19 23:45 97.8 F 12/21/19 23:32 87 18 130/78 98 12/21/19 20:11 97.9 F 92 18 135/92 96 Intake and Output 12/21/19 12/22/19 12/22/19 22:59 06:59 14:59 Intake Total 600 Balance 600 Intake: Intake, IV Titration 600 Amount Sodium Chloride 0.9% 1, 600 000 ml @ 75 mls/hr IV . [id number] [facility] Rx#:[id number] Other: Voiding Method Toilet Toilet # Voids 1 Weight 56.699 kg 57.5 kg Gen: Alert and oriented, little movement and rigid position Head: NCAT Neck: SUpple Heart: RRR Lungs: CTA Abd: S/ND Ext: No edema, Positive pulse Mood: Anxious Results CBC & Chem 7: 12/21/19 22:36 12/21/19 22:36 Labs: Abnormal Lab Results - Last 24 Hours (Table) 12/21/19 12/21/19 Range/Units 22:36 22:36 Lymphocytes # 0.6 L (1.0-4.8) k/uL Sodium 134 L (137-145) mmol/L Chloride 97 L (98-107) mmol/L BUN 27 H (7-17) mg/dL Glucose 128 H (74-99) mg/dL AST 39 H (14-36) U/L Comments: Bone scan from October and Xr Assessment and Plan Plan: Assessment and Recommendations: 1. Right sided Breast Cancer - Dx 2001, local recurrence 2017 - Refused treatment other than Letrazole - Now with suspicious lesions in bones, left rib: abnormalities seen in Fenruary, patient refused further work-up at that time - Recheck Tumor Markers - Rec full restage work-up 2. Pathological Rib Fractures - CT Chest Abd Pelv with contrast re-staging and potential re-biopsy - If concern for recurrence and repeat biopsy is completed will send for NGS for options of targeted therapy in metastatic breast cancer picture 3. Intractable Pain: - COntinue with pain management - Added Bowel Regimen - Added lidocaine patch Thank you for allowing us to participate in the care of this patient will follow with you
[2019-12-22 15:40] LABS: T4, Free (Free Thyroxine) 1.16 ng/dL (0.78-2.19)
[2019-12-22] MEDS ORDERED: ALPRAZolam 0.5 MG TAB PO ONE (16:00)
--- NOTE | 2019-12-22 17:51 | CT ---
EXAMINATION TYPE: CT ChestAbdPelvis w con DATE OF EXAM: 12/22/2019 COMPARISON: 10/07/2018 and 03/28/2018 HISTORY: 64-year-old female History of breast cancer. Nausea, vomiting and generalized pain. TECHNIQUE: Contiguous axial scanning of the chest, abdomen, and pelvis performed with IV Contrast, pa tient injected with 80 mL of Isovue 300. Delayed images through the kidneys were obtained. Coronal/sa gittal reconstructions performed. CT DLP: 488.5 mGycm Automated exposure control for dose reduction was used. FINDINGS: CHEST: Heart normal size without pericardial effusion. Aorta normal caliber with conventional branching anatomy. Redemonstrated is surgical clips in the right axilla with some patchy soft tissue thickening about th e surgical clips, probable scarring. Otherwise, no thoracic lymphadenopathy seen. Some mild subpleural reticulations right upper lobe suggesting radiation therapy change. Prominent de pendent atelectasis at the posterior lung bases new from prior. No enlarging pulmonary nodule seen. N o pleural effusion. ABDOMEN: Redemonstrated benign 4.4 cm right hepatic dome cyst. 1.7 cm left hepatic dome cyst. 6 mm left liver lobe cyst. However, there are new hypervascular masses, one within segment IVb measuring 3.1 cm and one within s egment 3 measuring 2.8 cm. Stable fusiform prominence of the bile duct with normal distal tapering. No abnormal gallbladder dist ention. Portal venous system is patent. Adrenal glands, right kidney, left kidney with parapelvic cysts, spleen, and pancreas show no gross a bnormality. No dilated small bowel, free fluid, or free air. No mesenteric or retroperitoneal lymphadenopathy see n. Moderate stool burden. No pericolonic inflammatory change. PELVIS: Bladder urine distended. Uterus anteverted. Central low density is present within the bladder measuri ng up to 1.8 cm thick, refer to sagittal image 53. Underlying calcified fibroids are also present. Ri ght ovary is visualized. Left ovary not clearly delineated. No abnormal fluid collection in the pelvi s or pelvic lymphadenopathy. BONES: New diffuse lytic osseous metastatic disease throughout the pelvis, sacrum, spine, distal right clavi tray, multiple left-sided ribs (largest destructive soft tissue lesion involving a 6 cm long segment o f the lateral left sixth rib), a single small focus within the mid sternal body,, lateral border of t he left scapula. A large 2.4 cm lytic lesion within the central posterior aspect of the T6 vertebral body may have min imal extraosseous extension into the ventral aspect of the spinal canal. Of note, there is a small 8 mm lytic lesion centered at the posterior femoral head neck junction of t he proximal left femur which has caused complete cortical disruption. IMPRESSION: 1. NEW DIFFUSE LYTIC OSSEOUS METASTATIC DISEASE THROUGHOUT THE SPINE, PELVIS, SACRUM, LEFT-SIDED RIBS , STERNUM, LEFT SCAPULA, AND DISTAL RIGHT CLAVICLE. OF NOTE, AN 8 MM LYTIC LESION HAS DESTROYED THE C ORTEX OF THE POSTERIOR FEMORAL HEAD NECK JUNCTION OF THE PROXIMAL LEFT FEMUR. PATIENT IS AT RISK FOR PATHOLOGIC FRACTURE. APPROPRIATE PRECAUTIONS SHOULD BE UTILIZED. 2. TWO NEW HEPATIC METASTASES MEASURING 3.1 CM AND 2.8 CM. 3. SURGICAL CLIPS IN THE RIGHT AXILLA WITH SOME CONTINUED SOFT TISSUE THICKENING HERE, PROBABLE SCARR ING. CONTINUED SURVEILLANCE RECOMMENDED. 4. POSSIBLE ABNORMAL ENDOMETRIAL THICKENING UP TO 1.8 CM. PELVIC ULTRASOUND CAN BETTER ASSESS THE END OMETRIAL STRIPE AND ASSESS THE NEED FOR POSSIBLE BIOPSY.
[2019-12-22] MEDS: LETROZOLE 2.5 MG TAB PO SCH (17:53)
[2019-12-22] MEDS: VITAMIN E (DL,TOCOPHERYL ACET) 400 UNIT CAP PO SCH (17:53)
[2019-12-22] MEDS: LIDOCAINE 5% PATCH TOPICAL SCH (17:53)
[2019-12-22] MEDS: ONDANSETRON 4 MG/2 ML VIAL IVP PRN (19:38)
[2019-12-22] MEDS: PANTOPRAZOLE 40 MG/10 ML VIAL IVP SCH (19:38)
[2019-12-22] MEDS: SENNOSIDES-DOCUSATE SODIUM 1 EACH TAB PO SCH (19:39)
[2019-12-22] MEDS: DEXAMETHASONE 4 MG TAB PO SCH (19:39)
--- NOTE | 2019-12-22 19:40 | CONS ---
CONSULTATION DATE OF SERVICE: 12/22/2019 REASON FOR CONSULTATION: Metastatic breast cancer with bone pain. HISTORY OF PRESENT ILLNESS: Jacquie Harris is a 64-year-old female who was initially diagnosed with breast cancer in 2001. The patient had a mastectomy at that time. She developed an axillary recurrence in 2018. The patient received radiation treatment at [facility]. Beginning in late September and early October, she began having increasing pain along her upper back. She was noticing pain along the left scapula and between her shoulder blades. She had x-rays revealing possible old rib fractures. The patient developed worsening of her symptoms. She apparently refused additional outpatient testing. The patient presented to the emergency room with severe pain. She was admitted with intractable pain. CT scan was performed on 12/22/2019. The final results are not dictated. This appears to show diffuse metastatic disease throughout the thoracic spine and multiple ribs as well as metastatic disease to the left iliac wing. The patient does complain of severe pain. PAST MEDICAL HISTORY: 1. Breast cancer. 2. Asthma. 3. Negative for cardiac disease, pulmonary disease. PAST SURGICAL HISTORY: 1. Right modified radical mastectomy. 2. Hernia surgery. 3. Tonsillectomy. FAMILY HISTORY: Contributory for mother with a history of breast cancer, additional family members with breast cancer and uterine cancer. Maternal grandmother with breast cancer and colon cancer. Family history contributory for thyroid disease. OUTPATIENT MEDICATIONS: Vitamin E, cyclobenzaprine and letrozole. ALLERGIES: DOG DANDER and GRASS POLLEN. REVIEW OF SYSTEMS: Noted as per the review of systems in the hospital chart. This is contributory for upper back pain, left rib pain, left flank pain. SOCIAL HISTORY: The patient is and lives in her own home. She denies significant history of tobacco or alcohol abuse. The patient is retired. PHYSICAL EXAMINATION: Ms. Harris is resting in a hospital bed. She is alert and oriented x3. The patient has a BP of approximately 125/76, pulse is 79, respiration is 18. She is afebrile. Head is atraumatic, normocephalic. Eyes: PERRLA, EOMI. Oral cavity reveals no visible lesions. Neck is without any palpable cervical or supraclavicular adenopathy. Lungs are clear to auscultation and percussion. She has decreased breath sounds at the base of the lungs bilaterally. HEART: regular rate and rhythm with normal heart sounds. Abdomen is benign, with no palpable masses or organomegaly. The patient has moderate tenderness noted along the middle of her thoracic spine, lower lumbar spine and bilateral sacral region. Neurologic examination reveals cranial nerves 2 through 12 intact. Strength and sensation intact. Deep tendon reflexes intact. Plantar reflexes were downgoing. Skin examination reveals no lesions. Psychiatric evaluation reveals no mood disorders. IMPRESSION: Jacquie Harris is a 64-year-old female with a history of axillary recurrence of breast cancer. She underwent surgery. Radiation treatment completed in 2018. The patient has been treated with letrozole. She is now presenting with severe upper back pain and left rib and lower left flank pain. The patient otherwise has dyspnea and other problems, including asthma. Pain scale evaluation: approximately 7/10. Pain control is [place]. PLAN: The patient's case was discussed with Medical Oncology today. The patient and I reviewed the results of the CT scan imaging. This does appear to show significant involvement of the thoracic spine diffusely from T8 to T12. The patient appears to have metastatic disease. The final results of the CT scan are not available. Therefore we are recommending that the patient undergo a biopsy for confirmation. She likely will start steroid therapy, as she is having severe pain. This may potentially reduce some of her discomfort and pain. The patient may potentially be a candidate for palliative radiation therapy to the thoracic spine and left rib cage. We will consider her for palliative radiation therapy. We will plan to meet with the patient at approximately 9 a.m. on 12/23/2019. Thank you for allowing me to participate in the care of Jacquie Harris. MMJESSE / JAS: [id number] / RENETTA
--- NOTE | 2019-12-22 20:40 | HP ---
HISTORY AND PHYSICAL This patient is a 64-year-old white female who came in with a history of breast cancer with severe right breast cancer in September 2001. She had infiltrating lobular carcinoma. She had left partial mastectomy without residual disease with negative lymph nodes. She had Dr. Mejia do some radiation to the right breast, offered endocrine therapy, which she declined. Then in 2018 she had painful fullness in the right axilla. She had right axillary lymphadenopathy. She had right ultrasound-guided lymphadenopathy with metastatic breast cancer. She had no metastatic disease with a negative bone scan in 2018 at that time, and she went on letrozole at that time. She then came here with severe pain in her back. She thought she had a torn muscle in her back. She had intractable back pain on her left side. New imaging reveals pathologic fractures with metastatic cancer. CT scan of the chest, pelvis and abdomen has been ordered. Pain medicine is being given and possible radiation. REVIEW OF SYSTEMS: Fourteen-point review of systems negative. PAST MEDICAL HISTORY: Asthma, cancer, breast surgery, hernia repair, orthopedic surgery, tonsillectomy, breast biopsy x2, left hand ganglion cyst. No smoke. FAMILY HISTORY: Mother with cancer of the breast and urine. Maternal grandmother breast and colon cancer. Son with thyroid disorder. HOME MEDICINES: Vitamin E, Flexeril, Femara. ALLERGIES: DOG, GRASS. PHYSICAL EXAMINATION: Temperature 97, pulse 63-70, respiratory rate 16-20, blood pressure 120s to 130s over 70s to 80s, oxygen saturation 96% to 98% on room air. Pain level is 10/10. She is grimacing with tenderness on her left scapula and her left ribs. She is alert and oriented x3. CARDIOVASCULAR: Regular rate and rhythm. LUNGS: Clear. EXTREMITIES: No edema. She is very anxious. LABS: Reviewed. Sodium 134, potassium 4.4, BUN 17, creatinine 0.75. ASSESSMENT: Right-sided breast cancer, local recurrence, suspicious lesions in the bones in the left ribs and pathologic rib fractures. CT scans are pending. Pain management. Please see further orders. MMODL / IJN: [id number] /
[2019-12-23] MEDS: HYDROcodone/APAP 5-325MG 1 EACH TAB PO PRN ×2 (00:11→06:28)
[2019-12-23] MEDS: HYDROmorphone 1 MG/ML 1 ML SYRINGE IVP PRN ×2 (03:11→09:21)
[2019-12-23] MEDS: ONDANSETRON 4 MG/2 ML VIAL IVP PRN ×2 (05:41→13:13)
[2019-12-23 05:51] LABS: Cancer Antigen 153 32.7 U/mL (0.0-32.3)
[2019-12-23 06:55] LABS: Basophils % (A) 0 %; Eosinophils % (A) 0 %; HCT 37.1 % (34.0-46.0); HGB 12.4 gm/dL (11.4-16.0); Lymphocytes # (A) 0.3 k/uL (1.0-4.8); Lymphocytes % (A) 5 %; MCH 30.7 pg (25.0-35.0); MCHC 33.6 g/dL (31.0-37.0); MCV 91.6 fL (80.0-100.0); Mean Platelet Volume 6.5; Monocytes # (A) 0.2 k/uL (0-1.0); Monocytes % (A) 4 %; Neutrophils # (A) 5.2 k/uL (1.3-7.7); Neutrophils % (A) 91 %; Platelet Count 227 k/uL (150-450); RBC 4.05 m/uL (3.80-5.40); RDW 12.5 % (11.5-15.5); WBC 5.8 k/uL (3.8-10.6)
[2019-12-23 06:57] LABS: ALT 22 U/L (4-34); AST 40 U/L (14-36); African American GFR (CKD) >90 (>60 ml/min/1.73 sqM); Albumin 3.5 g/dL (3.5-5.0); Alkaline Phosphatase 104 U/L (38-126); Anion Gap 8 mmol/L; Blood Urea Nitrogen 18 mg/dL (7-17); Calcium 9.2 mg/dL (8.4-10.2); Carbon Dioxide 25 mmol/L (22-30); Chloride 99 mmol/L (98-107); Glucose 113 mg/dL (74-99); Non-African American GFR(CKD) >90 (>60 ml/min/1.73 sqM); Potassium 4.7 mmol/L (3.5-5.1); Sodium 132 mmol/L (137-145); Total Bilirubin 0.3 mg/dL (0.2-1.3); Total Protein 6.4 g/dL (6.3-8.2)
[2019-12-23] MEDS: PANTOPRAZOLE 40 MG/10 ML VIAL IVP SCH (09:21)
[2019-12-23] MEDS: SENNOSIDES-DOCUSATE SODIUM 1 EACH TAB PO SCH ×2 (09:21→21:39)
[2019-12-23] MEDS: LIDOCAINE 5% PATCH TOPICAL SCH (09:22)
[2019-12-23] MEDS: POLYETHYLENE GLYCOL 3350 17 GM POWD.PACK PO SCH (09:22)
[2019-12-23] MEDS: DEXAMETHASONE 4 MG TAB PO SCH ×3 (09:22→21:39)
[2019-12-23] MEDS: MORPHINE SULFATE 4 MG/ML SYRINGE IVP PRN (13:02)
[2019-12-23] MEDS: MORPHINE SULFATE ER 15 MG TABLET PO SCH ×2 (13:03→21:39)
[2019-12-23] MEDS ORDERED: ZOLEDRONIC ACID 4 MG in SODIUM CHLORIDE 0.9% 100 ML IV ONE (13:30)
[2019-12-23] MEDS: LORazepam 2 MG/ML INJ IV ONE ×2 (13:58→14:02)
[2019-12-23 14:00] VITALS: BMI 21.1
--- NOTE | 2019-12-23 15:49 | MR ---
EXAMINATION TYPE: MR brain wo/w con DATE OF EXAM: 12/23/2019 COMPARISON: NONE HISTORY: Breast ca, evaluate for metastatic cancer TECHNIQUE: Multiplanar, multisequence images of the brain and brainstem is performed without and with IV contras t, utilizing 6 mL intravenous Gadavist . Examination is limited by patient motion. Examination was sw itched to the fast brain protocol is the patient was moving throughout the examination. Ativan was ad ministered. FINDINGS: Diffusion weighted images demonstrate no evidence of a recent infarct or other diffusion ab normality. There is no extra-axial fluid collection. There are few scattered areas of T2/FLAIR hyper intensity in the periventricular and subcortical white matter with prominent perivascular space at th e level of the inferior left basal ganglia. The ventricular system and cisternal spaces are normal in size and appearance. The brain volume is age appropriate. Midline structures demonstrate normal morphology. The craniocervical junction appears within normal limits. Post contrast images demonstrate no abnormal enhancement. The dural venous sinuses appear pa tent. The visualized sinuses are suboptimally evaluated given patient motion however a small mucosal retention cyst is suspected in the left maxillary sinus and there is scant mucosal thickening of the ethmoid and right maxillary sinus. Bone marrow signal of the clivus and C2 are slightly heterogenous on T1 sagittal image 10. IMPRESSION: 1. Extensive patient motion is seen on T2 and FLAIR images despite reimaging and the patient. Sequenc es are markedly suboptimal as is diffusion weighted imaging. Mild burden nonspecific white matter julia nge is seen, most commonly on the basis of chronic microangiopathy. 2. Motion artifact is only mild on the postcontrast images and no abnormal intracranial enhancement i s seen. No evidence of intracranial metastasis. 3. Bone marrow signal of C2 and the colitis are slightly heterogenous and could relate to anemia, seq uela of chronic medical diseases, osseous metastasis, or may be artifactual. 2.
--- NOTE | 2019-12-23 16:21 | P.PN ---
Subjective Progress Note Date: 12/23/19 Principal diagnosis: Metastatic Recurrent Breast Cancer Patient evaluated today with radiation oncology, who will begin radiation today. She also has area top of femur with impending fracture risk and radiation oncology will also treat this area. CT scans revealed concerning area in liver. IR consulted for biopsy Objective - Vital Signs Vital signs: Vital Signs Temp 97.6 F 12/23/19 12:12 Pulse 59 L 12/23/19 12:12 Resp 17 12/23/19 12:12 BP 126/73 12/23/19 12:12 Pulse Ox 98 12/23/19 12:12 Intake & Output 12/22/19 12/23/19 12/23/19 18:59 06:59 18:59 Intake Total 1000 1979 Balance 1000 1979 Weight 57.5 kg Intake: Intake, IV Titration 900 Amount Sodium Chloride 0.9% 1, 900 000 ml @ 75 mls/hr IV . [id number] [facility] Rx#:[id number] Oral 1000 1080 Other: Voiding Method Toilet Toilet Toilet # Voids 5 1 3 - Exam en: Alert and oriented, little movement and rigid position Head: NCAT Neck: SUpple Heart: RRR Lungs: CTA Abd: S/ND Ext: No edema, Positive pulse Mood: Anxious - Labs CBC & Chem 7: 12/23/19 05:55 12/23/19 05:55 Labs: Abnormal Lab Results - Last 24 Hours (Table) 12/21/19 12/21/19 12/23/19 Range/Units 22:36 22:36 05:55 Lymphocytes # 0.3 L (1.0-4.8) k/uL Sodium (137-145) mmol/L BUN (7-17) mg/dL Glucose (74-99) mg/dL AST (14-36) U/L CA 15-3 Antigen 32.7 H (0.0-32.3) U/mL CA 27-29 74.9 H (0.0-38.5) U/mL Vitamin D 25-Hydroxy 22.2 L (30.0-100.0) ng/mL 12/23/19 Range/Units 05:55 Lymphocytes # (1.0-4.8) k/uL Sodium 132 L (137-145) mmol/L BUN 18 H (7-17) mg/dL Glucose 113 H (74-99) mg/dL AST 40 H (14-36) U/L CA 15-3 Antigen (0.0-32.3) U/mL CA 27-29 (0.0-38.5) U/mL Vitamin D 25-Hydroxy (30.0-100.0) ng/mL Assessment and Plan Plan: Assessment and Recommendations: 1. Right sided Breast Cancer - Dx 2001, local recurrence 2018 - Refused treatment other than Letrazole - Now with suspicious lesions in bones, left rib: abnormalities seen in Fe nruary, patient refused further work-up at that time - Recheck Tumor Markers - Rec full restage work-up 2. Pathological Rib Fractures - CT Chest Abd Pelv with contrast re-staging revealing liver and area near left femur head - If concern for recurrence and repeat biopsy is completed will send for NGS for options of targeted therapy in metastatic breast cancer picture 3. Intractable Pain: - Continue with pain management - Initiated long acting MS contin and breakthrough morphine - Added Bowel Regimen - Added lidocaine patch Treatment with radiation to begin today to the significantly affected area in thoracic spine T8-T12m left rib and head of left femur MRI brain ordered IR for tissue biopsy
[2019-12-23 18:44] LABS: INR 1.1 (<1.2); Prothrombin Time 10.9 sec (9.0-12.0)
[2019-12-23] MEDS: SODIUM CHLORIDE 0.9% 1,000 ML IV SCH (18:44)
[2019-12-23] MEDS: VITAMIN E (DL,TOCOPHERYL ACET) 400 UNIT CAP PO SCH (18:44)
[2019-12-23] MEDS: LETROZOLE 2.5 MG TAB PO SCH (19:39)
[2019-12-23] MEDS: PANTOPRAZOLE 40 MG TABLET PO SCH (21:39)
--- NOTE | 2019-12-23 23:51 | PN ---
PROGRESS NOTE A white female 64 years old with metastatic breast cancer, biopsy of the liver, multiple spots in multiple bones in her body on a CAT scan of the abdomen, chest and pelvis. Morphine IV, morphine oral for pain. She apparently had brain MRI today which showed some motion artifact; no intracranial metastases of any cancer, osseous metastases was seen. There is no cancer in the brain. Suppose to possibly get radiation therapy today. IR is biopsying the areas of the liver. Radiation Oncology is starting radiation today area on the top of the femur. Two spots of the liver which are going to be biopsied. Continue with pain control with IV Dilaudid. Follow up in next 24 to 48 hours. MMODL / IJN: [id number] /
[2019-12-24] MEDS: SODIUM CHLORIDE 0.9% 1,000 ML IV SCH ×2 (06:39→16:47)
[2019-12-24] MEDS: DEXAMETHASONE 4 MG TAB PO SCH ×3 (08:04→21:40)
[2019-12-24] MEDS: SENNOSIDES-DOCUSATE SODIUM 1 EACH TAB PO SCH ×2 (08:04→20:35)
[2019-12-24] MEDS: MORPHINE SULFATE ER 15 MG TABLET PO SCH ×2 (08:05→20:35)
[2019-12-24] MEDS: PANTOPRAZOLE 40 MG TABLET PO SCH ×2 (08:05→20:35)
[2019-12-24] MEDS: LIDOCAINE 5% PATCH TOPICAL SCH (08:06)
[2019-12-24] MEDS: MORPHINE SULFATE 4 MG/ML SYRINGE IVP PRN (11:43)
[2019-12-24] MEDS: POLYETHYLENE GLYCOL 3350 17 GM POWD.PACK PO SCH (11:43)
--- NOTE | 2019-12-24 14:02 | P.PN ---
Subjective Progress Note Date: 12/24/19 Principal diagnosis: Metastatic Recurrent Breast Cancer She started radiation yesterday, I spoke to Interventional Radiology who felt it was with less complications to obtain tissue biopsy from pelvis area instead of liver. MRI of the brain was negative. Objective - Vital Signs Vital signs: Vital Signs Temp 98.3 F 12/24/19 11:42 Pulse 87 12/24/19 11:42 Resp 17 12/24/19 11:42 BP 145/90 12/24/19 11:42 Pulse Ox 98 12/24/19 11:42 Intake & Output 12/23/19 12/24/19 12/24/19 18:59 06:59 18:59 Intake Total 2260 400 Balance 2260 400 Weight 57.5 kg Intake: Intake, IV Titration 600 Amount Sodium Chloride 0.9% 1, 600 000 ml @ 75 mls/hr IV . [id number] [facility] Rx#:[id number] Oral 1660 400 Other: Voiding Method Toilet Toilet Toilet # Voids 3 1 - Exam en: Alert and oriented, little movement and rigid position Head: NCAT Neck: SUpple Heart: RRR Lungs: CTA Abd: S/ND Ext: No edema, Positive pulse Mood: Anxious - Labs CBC & Chem 7: 12/24/19 15:08 12/24/19 15:08 Assessment and Plan Plan: Assessment and Recommendations: 1. Right sided Breast Cancer - Dx 2001, local recurrence 2018 - Stop femara - Now with suspicious lesions in bones, left rib: abnormalities seen in [facility], patient refused further work-up at that time - Tumor markers increased - Rec full restage work-up 2. Pathological Rib Fractures - CT Chest Abd Pelv with contrast re-staging revealing liver and area near left femur head - If concern for recurrence and repeat biopsy is completed will send for NGS for options of targeted therapy in metastatic breast cancer picture 3. Intractable Pain: - Continue with pain management - Initiated long acting MS contin and breakthrough morphine - Added Bowel Regimen - Added lidocaine patch Treatment with radiation to begin 12/23/19 to the significantly affected area in thoracic spine T8-T12m left rib and head of left femur Biopsy of pelvis bone instead of Liver per IR less complications to obtain tissue repeat bone scan, MRI brain revealed area at C2. Manage Pain Await path Continue Radiation Physician Attest: I have completed the full history and physical and agree with above dictation, dictated as a scribe.
--- NOTE | 2019-12-24 14:14 | P.PCN ---
Date of Procedure: 12/24/19 Preoperative Diagnosis: metastatic disease Procedure(s) Performed: ct core biopsy left ilium Estimated Blood Loss (ml): 5 Pathology: other (in formalin) Disposition: no change Operative Findings: 18 ga core biopsy lytic bone lesion without incident
[2019-12-24 15:30] LABS: ALT 28 U/L (4-34); AST 54 U/L (14-36); African American GFR (CKD) >90 (>60 ml/min/1.73 sqM); Albumin 3.8 g/dL (3.5-5.0); Alkaline Phosphatase 102 U/L (38-126); Anion Gap 6 mmol/L; Blood Urea Nitrogen 18 mg/dL (7-17); Calcium 9.1 mg/dL (8.4-10.2); Carbon Dioxide 28 mmol/L (22-30); Chloride 103 mmol/L (98-107); Glucose 139 mg/dL (74-99); Non-African American GFR(CKD) >90 (>60 ml/min/1.73 sqM); Potassium 3.9 mmol/L (3.5-5.1); Sodium 137 mmol/L (137-145); Total Bilirubin 0.5 mg/dL (0.2-1.3); Total Protein 6.7 g/dL (6.3-8.2)
[2019-12-24 15:38] LABS: Basophils % (A) 0 %; Eosinophils % (A) 0 %; HCT 42.3 % (34.0-46.0); HGB 13.4 gm/dL (11.4-16.0); Lymphocytes # (A) 0.1 k/uL (1.0-4.8); Lymphocytes % (A) 1 %; MCH 29.9 pg (25.0-35.0); MCHC 31.7 g/dL (31.0-37.0); MCV 94.3 fL (80.0-100.0); Mean Platelet Volume 6.8; Monocytes # (A) 0.5 k/uL (0-1.0); Monocytes % (A) 5 %; Neutrophils # (A) 9.1 k/uL (1.3-7.7); Neutrophils % (A) 93 %; Platelet Count 277 k/uL (150-450); RBC 4.48 m/uL (3.80-5.40); RDW 12.3 % (11.5-15.5); WBC 9.7 k/uL (3.8-10.6)
[2019-12-24] MEDS: HYDROcodone/APAP 5-325MG 1 EACH TAB PO PRN (16:45)
[2019-12-24] MEDS: LETROZOLE 2.5 MG TAB PO SCH (16:46)
[2019-12-24] MEDS: VITAMIN E (DL,TOCOPHERYL ACET) 400 UNIT CAP PO SCH (16:46)
--- NOTE | 2019-12-25 00:27 | PN ---
PROGRESS NOTE A 64-year-old white female who was found to have bone marrow biopsy today. Pathology is pending. She has 2 liver lesions. She has multiple lesions. She had radiation to the left femur, left ribs, thoracic spine. The pain is better today on oral morphine. Possible discharge when she has radiation completed and her pain gets better. Continue to wait for pathology and then treatment outpatient with chemo and radiation will be done. Pain level is still 8 out of 10. CARDIOVASCULAR: S1, S2. LUNGS: Clear. GI: Soft. HEMATOLOGY: Negative Homans. MUSCULOSKELETAL: Tenderness to palpation left ribs, left hip, left mid thoracic. Will follow up in the next 24 to 48 hours for possible discharge after treatment with radiation and chemo as an outpatient. MMODL / IJN: [id number] /
[2019-12-25] MEDS: HYDROcodone/APAP 5-325MG 1 EACH TAB PO PRN ×3 (04:47→15:12)
[2019-12-25 07:03] LABS: Basophils % (A) 0 %; Eosinophils # (A) 0.1 k/uL (0-0.7); Eosinophils % (A) 1 %; HGB 12.2 gm/dL (11.4-16.0); Lymphocytes # (A) 0.2 k/uL (1.0-4.8); Lymphocytes % (A) 2 %; MCH 29.9 pg (25.0-35.0); MCHC 32.8 g/dL (31.0-37.0); MCV 90.9 fL (80.0-100.0); Mean Platelet Volume 7.1; Monocytes # (A) 0.5 k/uL (0-1.0); Monocytes % (A) 6 %; Neutrophils # (A) 6.8 k/uL (1.3-7.7); Neutrophils % (A) 91 %; Platelet Count 240 k/uL (150-450); RBC 4.07 m/uL (3.80-5.40); RDW 12.3 % (11.5-15.5); WBC 7.5 k/uL (3.8-10.6)
[2019-12-25 07:07] LABS: ALT 28 U/L (4-34); African American GFR (CKD) >90 (>60 ml/min/1.73 sqM); Albumin 3.3 g/dL (3.5-5.0); Anion Gap 6 mmol/L; Blood Urea Nitrogen 17 mg/dL (7-17); Calcium 8.2 mg/dL (8.4-10.2); Carbon Dioxide 26 mmol/L (22-30); Chloride 105 mmol/L (98-107); Glucose 98 mg/dL (74-99); Non-African American GFR(CKD) >90 (>60 ml/min/1.73 sqM); Sodium 137 mmol/L (137-145); Total Bilirubin 0.7 mg/dL (0.2-1.3); Total Protein 6.2 g/dL (6.3-8.2)
[2019-12-25 07:18] LABS: AST 50 U/L (14-36); Alkaline Phosphatase 84 U/L (38-126); Potassium 4.3 mmol/L (3.5-5.1)
[2019-12-25] MEDS: SODIUM CHLORIDE 0.9% 1,000 ML IV SCH (08:10)
[2019-12-25] MEDS: POLYETHYLENE GLYCOL 3350 17 GM POWD.PACK PO SCH (08:57)
[2019-12-25] MEDS: DEXAMETHASONE 4 MG TAB PO SCH ×3 (08:58→21:16)
[2019-12-25] MEDS: PANTOPRAZOLE 40 MG TABLET PO SCH ×2 (08:58→20:27)
[2019-12-25] MEDS: MORPHINE SULFATE ER 15 MG TABLET PO SCH ×2 (08:58→20:26)
[2019-12-25] MEDS: SENNOSIDES-DOCUSATE SODIUM 1 EACH TAB PO SCH ×2 (08:58→20:27)
[2019-12-25] MEDS: LIDOCAINE 5% PATCH TOPICAL SCH ×2 (09:01→10:33)
--- NOTE | 2019-12-25 10:46 | CT ---
EXAMINATION TYPE: CT biopsy bone superficial DATE OF EXAM: 12/24/2019 HISTORY: Breast carcinoma, metastatic disease, lytic bone lesions COMPARISON: CT 12/22/2019 Maximal barrier technique was utilized, hand hygiene obtained with soap and water. The skin overlyin g a suitable path to the lesion in the anterior left ilium was localized using CT and the overlying s kin was prepped and draped. Lidocaine used for local anesthesia. A skin josse made with a scalpel. Using CT guidance, access was gained to the lesion with a 18-gauge core needle. Core specimen submit ofe to cytology in formalin. Following the procedure no immediate complications. The patient is dis charged in stable condition. Hemostasis achieved. IMPRESSION: SUCCESSFUL CT GUIDED CORE BIOPSY. PATHOLOGY PENDING. THIS PROCEDURE WAS PERFORMED BY THE [employer]
--- NOTE | 2019-12-25 12:25 | NM ---
EXAMINATION TYPE: NM bone scan whole body DATE OF EXAM: 12/25/2019 COMPARISON: Correlation CT 12/22/2019 and prior bone scan 10/31/2019 HISTORY: 64-year-old female history of breast cancer. Upper back pain for 2 months, possible fracture anterior to the left-sided ribs. Technique: Delayed whole-body scanning was performed following the injection of 22.2 mCi Tc 99m MDP. Images acquired 3 hours post injection. FINDINGS: Couple new small foci of activity involving the left iliac bone. New focus of activity posterior mid right rib. Subtle new focus of activity superior left scapula. A few new foci of activity along the left costovertebral junctions posteriorly. Similar abnormal tracer activity involving a couple posterior posterolateral left-sided ribs. IMPRESSION: 1. The previous bone scan findings are redemonstrated but a few new small foci of activity are now de monstrated such as within the left side of the pelvis, a right-sided rib, and the superior left scapu la. 2. Note that bone scan has decreased sensitivity for purely lytic metastases and is likely underestim ating the osseous metastatic disease burden given findings on CT 12/22/2019.
[2019-12-25] MEDS: VITAMIN E (DL,TOCOPHERYL ACET) 400 UNIT CAP PO SCH (16:30)
[2019-12-25] MEDS: LETROZOLE 2.5 MG TAB PO SCH (16:30)
--- NOTE | 2019-12-25 20:30 | P.PN ---
Subjective Progress Note Date: 12/25/19 Principal diagnosis: Metastatic Recurrent Breast Cancer Overall pain is better controlled today, still having difficulties with constipation, increase bowel regimen. Objective - Vital Signs Vital signs: Vital Signs Temp 98.2 F 12/25/19 05:00 Pulse 80 12/25/19 15:48 Resp 18 12/25/19 15:48 BP 126/72 12/25/19 05:00 Pulse Ox 97 12/25/19 05:00 Intake & Output 12/25/19 12/25/19 12/26/19 06:59 18:59 06:59 Intake Total 825 360 Balance 825 360 Intake: Intake, IV Titration 825 Amount Sodium Chloride 0.9% 1, 825 000 ml @ 75 mls/hr IV . [id number] [facility] Rx#:[id number] Oral 360 Other: Voiding Method Toilet Toilet # Voids 1 4 # Bowel Movements 1 - Exam en: Alert and oriented, little movement and rigid position Head: NCAT Neck: SUpple Heart: RRR Lungs: CTA Abd: S/ND Ext: No edema, Positive pulse Mood: Anxious - Labs CBC & Chem 7: 12/25/19 06:00 12/25/19 06:00 Labs: Abnormal Lab Results - Last 24 Hours (Table) 12/25/19 12/25/19 Range/Units 06:00 06:00 Lymphocytes # 0.2 L (1.0-4.8) k/uL Calcium 8.2 L (8.4-10.2) mg/dL AST 50 H (14-36) U/L Total Protein 6.2 L (6.3-8.2) g/dL Albumin 3.3 L (3.5-5.0) g/dL Assessment and Plan Plan: Assessment and Recommendations: 1. Right sided Breast Cancer - Dx 2001, local recurrence 2018 - Stop femara - Now with suspicious lesions in bones, left rib: abnormalities seen in [facility], patient refused further work-up at that time - Tumor markers increased - Rec full restage work-up 2. Pathological Rib Fractures - CT Chest Abd Pelv with contrast re-staging revealing liver and area near left femur head - If concern for recurrence and repeat biopsy is completed will send for NGS fo r options of targeted therapy in metastatic breast cancer picture 3. Intractable Pain: - Continue with pain management - Initiated long acting MS contin and breakthrough morphine - Added Bowel Regimen - Added lidocaine patch 4. Narcotic Induced Constipation: - Increase bowel regimen Treatment with radiation to begin 12/23/19 to the significantly affected area in thoracic spine T8-T12m left rib and head of left femur Biopsy of pelvis bone instead of Liver per IR less complications to obtain tissue - This has been completed awaiting path Reviewed Bone scan and worsening since last month Manage Pain and bowel regimen Await path Continue Radiation Physician Attest: I have completed the full history and physical and agree with above dictation, dictated as a scribe.
[2019-12-26] MEDS: POLYETHYLENE GLYCOL 3350 17 GM POWD.PACK PO SCH (07:32)
[2019-12-26] MEDS: LIDOCAINE 5% PATCH TOPICAL SCH (07:32)
[2019-12-26] MEDS: SENNOSIDES-DOCUSATE SODIUM 1 EACH TAB PO SCH (07:33)
[2019-12-26] MEDS: MORPHINE SULFATE ER 15 MG TABLET PO SCH (07:33)
[2019-12-26] MEDS: DEXAMETHASONE 4 MG TAB PO SCH (07:34)
[2019-12-26] MEDS: PANTOPRAZOLE 40 MG TABLET PO SCH (07:41)
[2019-12-26 11:25] VITALS: BP 135/81; RESP 15; TEMP 98.7
[2019-12-26] MEDS: HYDROcodone/APAP 5-325MG 1 EACH TAB PO PRN (11:53)
[2019-12-26 13:54] VITALS: PULSE 80
--- NOTE | 2019-12-26 17:18 | P.PN ---
Subjective Progress Note Date: 12/26/19 Principal diagnosis: Metastatic Recurrent Breast Cancer Patient pain is a little more today but overall feeling better. We had a long discussion today related to plan as outpatient. Objective - Vital Signs Vital signs: Vital Signs Temp 98.7 F 12/26/19 11:06 Pulse 66 12/26/19 11:06 Resp 15 12/26/19 11:06 BP 135/81 12/26/19 11:06 Pulse Ox 96 12/26/19 11:06 Intake & Output 12/25/19 12/26/19 12/26/19 18:59 06:59 18:59 Intake Total 381 636 6458 Balance 610 157 6407 Intake: Oral 839 453 6724 Other: Voiding Method Toilet Toilet Toilet # Voids 4 2 4 # Bowel Movements 1 - Exam en: Alert and oriented, little movement and rigid position Head: NCAT Neck: SUpple Heart: RRR Lungs: CTA Abd: S/ND Ext: No edema, Positive pulse Mood: Anxious - Labs CBC & Chem 7: 12/25/19 06:00 12/25/19 06:00 Assessment and Plan Plan: Assessment and Recommendations: 1. Right sided Breast Cancer - Dx 2001, local recurrence 2018 - Stop femara - Now with suspicious lesions in bones, left rib: abnormalities seen in [facility], patient refused further work-up at that time - Tumor markers increased - Rec full restage work-up 2. Pathological Rib Fractures - CT Chest Abd Pelv with contrast re-staging revealing liver and area near left femur head - If concern for recurrence and repeat biopsy is completed will send for NGS for options of targeted therapy in metastatic breast cancer picture 3. Intractable Pain: - Continue with pain management - Initiated long acting MS contin and breakthrough morphine - Added Bowel Regimen - Added lidocaine patch 4. Narcotic Induced Constipation: - Increase bowel regimen Treatment with radiation to begin 12/23/19 to the significantly affected area in thoracic spine T8-T12m left rib and head of left femur Biopsy of pelvis bone instead of Liver per IR less complications to obtain tissue - This has been completed awaiting path Reviewed Bone scan and worsening since last month Manage Pain and bowel regimen Await path Continue Radiation She will receive a 3 day supply of her pain medicine today and be seen in office Sunday for narcotic agreement and full month prescriptions. Orders have been p laced to outpatient nursing for monthly xgeva, NGS testing on path, and for follow-up this week in office. She will completed radiation palliative therapy and then discuss treatment plan with Dr. Canas once pathology and further biomarkers are resulted. Physician Attest: I have completed the full history and physical and agree with above dictation, dictated as a scribe.
--- NOTE | 2020-01-02 12:31 | P.DS ---
Providers Date of admission: 12/21/19 22:08 Expected date of discharge: 12/26/19 Attending physician: Rigoberto Melo Consults: 12/21/19 22:09 Consult Physician Urgent Consulting Provider: Andrez Harris Consult Reason/Comments: new lytic lesions, hx breast cancer Do you want consulting provider notified?: Yes, Notify in am 12/21/19 22:10 Consult Physician Routine Consulting Provider: Cabrera Givens Consult Reason/Comments: new lytic lesions, hx breast cancer Do you want consulting provider notified?: Yes Primary care physician: Stated None Hospital Course: Final Diagnoses: Recurrent worsening back pain, lytic bone lesions on ER x-rays Recurrent metastatic breast CA Pathological rib fractures Hospital course: This a 64-year-old female with recurrent metastatic breast cancer admitted for further workup secondary to recurrent worsening left-sided back pain. Bilateral rib x-ray/portable chest x-ray completed in the ER suggestive of pathological fractures of the left sixth and seventh rib with lytic lesions of the left scapula Evaluated by oncology, radiation oncology. Further workup completed including CT of the chest abdomen and pelvis with contrast, repeat biopsy, restaging, bone scan. MRI of the brain reported negative. A tissue biopsy from pelvis area obtained. Pathology pending. Radiation treatment began 12/23/2019.CT Chest Abd Pelv with contrast re-staging reporting liver and area near left femur head. Significant clinical improvement with lidocaine patch, pain management and Decadron. Patient will be discharged home in a stable condition pending clearance, final DC recommendations/pain management as per oncology. Please refer to H&P, consult notes, and multiple follow-up study results for specific details. The impression and plan of care has been dictated as directed. : I performed a history and examination of this patient, discussed the same with the dictator. I agree with the dictator's note ,documented as a scribe. Any additional findings or plans will be noted. Patient Condition at Discharge: Stable Plan - Discharge Summary Discharge Rx Participant: No New Discharge Prescriptions: New Lidocaine 5% Patch [Lidoderm 5% Patch] 1 patch TOPICAL DAILY #7 patch Polyethylene Glycol 3350 [Miralax] 17 gm PO DAILY powd.pack Pantoprazole [Protonix] 40 mg PO BID #30 tablet.dr Eagle-Docusate Sodium [Senokot-S] 1 each PO BID #60 tab Continue Vitamin E (Dl,Tocopheryl Acet) [Vitamin E] 400 unit PO AC-SUPPER Cyclobenzaprine [Flexeril] 10 mg PO TID PRN PRN Reason: Muscle Pain Letrozole [Femara] 2.5 mg PO AC-SUPPER Discharge Medication List Vitamin E (Dl,Tocopheryl Acet) [Vitamin E] 400 unit PO AC-SUPPER 02/28/18 [History] Cyclobenzaprine [Flexeril] 10 mg PO TID PRN 12/21/19 [History] Letrozole [Femara] 2.5 mg PO AC-SUPPER 12/21/19 [History] Lidocaine 5% Patch [Lidoderm 5% Patch] 1 patch TOPICAL DAILY #7 patch 12/26/19 [Rx] Pantoprazole [Protonix] 40 mg PO BID #30 tablet.dr 12/26/19 [Rx] Polyethylene Glycol 3350 [Miralax] 17 gm PO DAILY powd.pack 12/26/19 [Rx] Sennosides-Docusate Sodium [Senokot-S] 1 each PO BID #60 tab 12/26/19 [Rx] Follow up Appointment(s)/Referral(s): Rigoberto Melo MD [STAFF PHYSICIAN] - 1 Week Cabrera Givens MD [STAFF PHYSICIAN] - 1 Week Activity/Diet/Wound Care/Special Instructions: Pending dc clearance, Pain med & Decadron Rx's as per oncology. Confirm further radiation appointments.
== END 2019-12-26 15:39 | disposition home or self-care (01) | DRG 478 ==
LOC: EC 20:03 → 5NMEDONC 22:08 → EEVIPCON 22:08
PROVIDERS: ADMIT Family Medicine; ATTEND Family Medicine
PROC: 0QB33ZX Excision of Left Pelvic Bone, Percutaneous Approach, Diagnostic (ICD-10-PCS; principal; 2019-12-21)
PROC: DP091ZZ Beam Radiation of Femur using Photons 1 - 10 MeV (ICD-10-PCS; 2019-12-23)
PROC: DP0 Radiation Therapy, Musculoskeletal System, Beam Radiation (ICD-10-PCS; 2019-12-23)
DX: C79.51 Secondary malignant neoplasm of bone (principal); M84.48XA Pathological fracture, other site, initial encounter for fracture; C77.3 Secondary and unspecified malignant neoplasm of axilla and upper limb lymph nodes; C50.911 Malignant neoplasm of unspecified site of right female breast; J45.909 Unspecified asthma, uncomplicated; G89.3 Neoplasm related pain (acute) (chronic); K76.9 Liver disease, unspecified; K59.00 Constipation, unspecified; T40.2X5A Adverse effect of other opioids, initial encounter; Z17.0 Estrogen receptor positive status [ER+]; Z71.3 Dietary counseling and surveillance; Z79.811 Long term (current) use of aromatase inhibitors; Z79.899 Other long term (current) drug therapy; Z98.890 Other specified postprocedural states; Z87.2 Personal history of diseases of the skin and subcutaneous tissue; Z92.3 Personal history of irradiation; Z90.11 Acquired absence of right breast and nipple; Z80.49 Family history of malignant neoplasm of other genital organs; Z80.0 Family history of malignant neoplasm of digestive organs; Z80.3 Family history of malignant neoplasm of breast; Z83.49 Family history of other endocrine, nutritional and metabolic diseases
CPT/HCPCS: 20220; 36415; 70553; 71111; 71260; 74177; 77012; 77280; 77295; 77300; 77307; 77332; 77334; 77336; 77387; 77412; 77470; 78306; 80053; 82306; 83735; 84439; 84443; 85025; 85610; 86300; 88305; 88313; 88341; 88342; 93005; 96361; 96372; 96374; 99285

== ENCOUNTER → 2020-01-29 | Outpatient (CLI) | payer MEDICARE, BC ==
--- NOTE | 2020-01-29 14:41 | US ---
"EXAMINATION TYPE: US venous doppler duplex LE LT DATE OF EXAM: 01/29/2020 2:16 PM COMPARISON: NONE CLINICAL HISTORY: M79.662 pain in left limb R22.42 swelling. CA leg swelling. SIDE PERFORMED: Left TECHNIQUE: The lower extremity deep venous system is examined utilizing real time linear array sonog lucille with graded compression, doppler sonography and color-flow sonography. VESSELS IMAGED: External Iliac Vein (EIV) Common Femoral Vein Deep Femoral Vein Greater Saphenous Vein * Femoral Vein Popliteal Vein Small Saphenous Vein * Proximal Calf Veins (* superficial vessels Left Leg: Positive for DVT Positive for DVT from EIV to Popliteal Vein. IMPRESSION: Positive deep venous thrombosis in the left lower extremity extending from the external i liac vein to the popliteal vein. At the end of the examination. Results were telephoned to the [facility] physician's office by the isotope hydrologist who spoke with Alexandra. A [place] level critical message alert has been initiated for Cabrera Givens MD via the [employer] 36 0 | Critical Results System on 01/29/2020 2:39 PM. This message alert has been sent to Cabrera Givens MD via the preferences provided by the clinician for the receipt of Radiology Critical Findings. [facility] ID [id number]."
== END | disposition home or self-care (01) ==
LOC: RADUSWWP 13:09
PROVIDERS: ATTEND Internal Medicine Hematology & Oncology
DX: I82.432 Acute embolism and thrombosis of left popliteal vein (principal); Z91.09 Other allergy status, other than to drugs and biological substances; Z91.048 Other nonmedicinal substance allergy status

== ENCOUNTER 2020-01-30 13:19 | Emergency (ER) | payer MEDICARE, BC ==
[2020-01-30 13:28] VITALS: TEMP 98.3
--- NOTE | 2020-01-30 14:25 | ED ---
SOB HPI - General Chief Complaint: Shortness of Breath Stated Complaint: pulmonary embolism Time Seen by Provider: 01/30/20 13:31 Source: patient, family, RN notes reviewed Mode of arrival: wheelchair Limitations: no limitations - History of Present Illness Initial Comments: This is a 65-year-old female history of metastatic breast cancer who was diagno sed yesterday with a DVT in the left lower extremity who is back today after being found have a pulmonary embolism on the right side. She states she started having swelling to her left lower extremity 3 days ago and had outpatient venous Doppler done which did show the clot the. Additionally she was started on Elequis yesterday. She complains some shortness of breath and this is only when she wears her N-95 mask. Patient has no other complaints fevers chills nausea vomiting sweats. - Related Data Home Medications Medication Instructions Recorded Confirmed Vitamin E (Dl,Tocopheryl Acet) 400 unit PO AC-SUPPER 02/28/18 12/21/19 [Vitamin E] Cyclobenzaprine [Flexeril] 10 mg PO TID PRN 12/21/19 12/21/19 Previous Rx's Medication Instructions Recorded Dexamethasone 4 mg PO AC-TID #72 tablet 12/26/19 HYDROcodone/APAP 7.5-325MG [[place] 1 tab PO Q4H PRN 3 Days #18 tab 12/26/19 7.5-325] Lidocaine 5% Patch [Lidoderm 5% 1 patch TOPICAL DAILY #7 patch 12/26/19 Patch] Morphine Sulfate ER [Ms Contin] 15 mg PO Q8H 3 Days #9 tab 12/26/19 Pantoprazole [Protonix] 40 mg PO BID #30 tablet.dr 12/26/19 Polyethylene Glycol 3350 [Miralax] 17 gm PO DAILY 30 Days packet 12/26/19 Sennosides/Docusate Sodium [Senna 2 each PO HS #60 tablet 12/26/19 Plus 8.6-50 mg Tablet] Allergies Allergy/AdvReac Type Severity Reaction Status Date / Time dog dander Allergy Cough Verified 12/21/19 22:07 alpelisib [From Piqray] AdvReac Rash/Hives Verified 01/30/20 13:29 grass pollen AdvReac Wheezing Verified 12/21/19 22:07 Review of Systems ROS Statement: Those systems with pertinent positive or pertinent negative responses have been documented in the HPI. ROS Other: All systems not noted in ROS Statement are negative. 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 L hand ganglion cyst. BREAST BX x2. septum repair 2001. lymph node biopsy right arm pit 2018 Past Anesthesia/Blood Transfusion Reactions: No Reported Reaction Past Psychological History: No Psychological Hx Reported Smoking Status: Never smoker Past Alcohol Use History: None Reported Past Drug Use History: None Reported - Past Family History Mother Family Medical History: Cancer Additional Family Medical History / Comment(s): breast and uterine cancer. maternal grandmother breast and colon cancer Son(s) Family Medical History: Thyroid Disorder General Exam - General Exam Comments Initial Comments: This is a well-developed sec appearing female who is awake alert oriented 3 Limitations: no limitations General appearance: alert, in no apparent distress Head exam: Present: atraumatic, normocephalic, normal inspection Eye exam: Present: normal appearance, PERRL, EOMI. Absent: scleral icterus, conjunctival injection, periorbital swelling ENT exam: Present: mucous membranes dry Neck exam: Present: normal inspection. Absent: tenderness, meningismus, lymphadenopathy Respiratory exam: Present: normal lung sounds bilaterally. Absent: respiratory distress, wheezes, rales, rhonchi, stridor Cardiovascular Exam: Present: regular rate, normal rhythm, normal heart sounds. Absent: systolic murmur, diastolic murmur, rubs, gallop, clicks GI/Abdominal exam: Present: soft, normal bowel sounds. Absent: distended, tenderness, guarding, rebound, rigid Extremities exam: Present: normal inspection, full ROM, normal capillary refill, pedal edema (Edema left lower extremity consistent with the diagnosis). Absent: tenderness, joint swelling, calf tenderness Back exam: Present: normal inspection Neurological exam: Present: alert, oriented X3, CN II-XII intact Psychiatric exam: Present: normal affect, normal mood Skin exam: Present: warm, dry, intact, normal color. Absent: rash Course Vital Signs 01/30/20 13:24 Temperature 98.3 F Pulse Rate 120 H Respiratory 18 Rate Blood Pressure 124/87 O2 Sat by Pulse 96 Oximetry Medical Decision Making - Medical Decision Making I did discuss the findings with the patient and her family also with Dr. March. Patient is adequately anticoagulated at this time will be discharged. She was recommended he increase oral fluids he was her current medication follow-up as planned she is in agreement with this. - Radiology Data Radiology results: report reviewed, image reviewed Disposition Clinical Impression: Pulmonary embolism, DVT of axillary vein, acute left, Tachycardia, Dehydration Disposition: HOME SELF-CARE Condition: Good Instructions (If sedation given, give patient instructions): Pulmonary Embolism (ED), Deep Vein Thrombosis Prevention (ED), Venous Thromboembolism (ED), Dehydration (ED) Is patient prescribed a controlled substance at d/c from ED?: No Referrals: Cabrera Givens MD [Primary Care Provider] - 1-2 days
[2020-01-30 14:51] VITALS: BP 119/79; PULSE 108; RESP 16
== END 2020-01-30 14:50 | disposition home or self-care (01) ==
LOC: EC 13:19
DX: I26.99 Other pulmonary embolism without acute cor pulmonale (principal); I82.A12 Acute embolism and thrombosis of left axillary vein; E86.0 Dehydration; Z85.79 Personal history of other malignant neoplasms of lymphoid, hematopoietic and related tissues; Z85.830 Personal history of malignant neoplasm of bone; Z88.8 Allergy status to other drugs, medicaments and biological substances; Z91.048 Other nonmedicinal substance allergy status
CPT/HCPCS: 99284 ×2; 82565; 84520; 71275; 36415; Q9967

== ENCOUNTER → 2020-01-30 | Outpatient (CLI) | payer MEDICARE, BC ==
[2020-01-30 10:17] LABS: African American GFR (CKD) >90 (>60 ml/min/1.73 sqM); Blood Urea Nitrogen 16 mg/dL (7-17); Non-African American GFR(CKD) >90 (>60 ml/min/1.73 sqM)
--- NOTE | 2020-01-30 11:32 | CT ---
EXAMINATION TYPE: CT angio chest DATE OF EXAM: 01/30/2020 10:46 AM COMPARISON: 12/22/2019 HISTORY: dvt, sob CT DLP: 128.4 mGycm Automated exposure control for dose reduction was used. CONTRAST: CTA scan of the thorax is performed with IV Contrast, patient injected with 100 mL of Isovue 370, pul monary embolism protocol. . FINDINGS: LUNGS: Heart normal size without pericardial effusion. Aorta normal caliber with conventional branchi ng anatomy. Redemonstrated is surgical clips in the right axilla with some patchy soft tissue thicken ing about the surgical clips, probable scarring. Otherwise, no thoracic lymphadenopathy seen. Some mi ld subpleural reticulations right upper lobe suggesting radiation therapy change. Prominent dependent atelectasis at the posterior lung bases new from prior. No enlarging pulmonary nodule seen. No pleur al effusion. Again changes of COPD are noted with areas of subsegmental linear consolidation could be en the basis of atelectasis or scar. No sizable new pulmonary nodules. . MEDIASTINUM: There is a intraluminal filling defect involving a third order branch the right pulmonar y artery best noted on axial image 79 through 84 report called to referring clinician. OTHER: Diffuse lytic osseous metastatic disease throughout the , distal right clavicle, multiple lef t-sided ribs (largest destructive soft tissue lesion involving a 6 cm long segment of the lateral lef t sixth rib), sternum,, lateral border of the left scapula. A large 2.4 cm lytic lesion within the ce ntral posterior aspect of the T6 vertebral body may have minimal extraosseous extension into the vent ral aspect of the spinal canal. Findings involving the T6 vertebral segment appear to be progressed f rom the prior exam in terms of the degree of compression with a severe near complete compression frac ture now noted. There appears to be involvement of multiple additional vertebrae throughout the lower thoracic spine with destructive changes which are similar to the prior exam particularly at T8 11, T 12, L1 and L2.. There also appears to be involvement of the right rib cage second rib which appears to be retrospecti vely stable from the prior exam. There are additional focal smaller areas of lytic change involving m ultiple right-sided ribs measuring under 1 cm. Findings are compatible with diffuse bony metastases. 4.4 cm cyst involving the hepatic dome again noted. 1.7 cm and 6 mm suspected left lobe liver cysts a re stable. However, there again appear to be multiple lesions within the liver suspicious for metasta ses with the largest seen involving the inferior right lobe of the liver measuring 4.5 cm in greatest axis and previously measuring 3 cm. This suggest progressive metastases. Additional lesion adjacent to the hepatic dome cyst is not seen with certainty on the prior exam and measures 2 cm on the curren t exam. Thickening of the left adrenal gland also noted. IMPRESSION: 1. Findings are compatible with an acute pulmonary embolism involving a third order branch right pulm onary artery. Report called to referring clinician. 2. Widespread bony metastasis which has progressed in certain areas relative to the prior exam. Compr ession fracture and destruction of T6 now appears to be near complete. As previously noted anterior e xtension into the spinal canal at T6 and T11 is not excluded. 3. There is interval progression of hepatic metastasis with the largest lesion now measuring 4.5 cm a nd producing measuring 3 cm. A [place] critical message alert has been initiated for Cabrera Givens MD via the [facility] Critical Results System on 01/30/2020 11:25 AM. This message alert has been sent to Cabrera Givens MD via the preferences provided by the clinician for the receipt of Radiology Critical Findings. [employer] e ID [id number].
== END | disposition home or self-care (01) ==
LOC: RADCTMAIN 09:30
PROVIDERS: ATTEND Internal Medicine Hematology & Oncology
DX: C79.51 Secondary malignant neoplasm of bone (principal); C78.7 Secondary malignant neoplasm of liver and intrahepatic bile duct; C80.1 Malignant (primary) neoplasm, unspecified; Z91.09 Other allergy status, other than to drugs and biological substances
CPT/HCPCS: 82565; 84520; 71275; 36415; Q9967

== ENCOUNTER → 2020-03-18 | Outpatient (CLI) | payer MEDICARE, BC ==
[2020-03-18 10:40] LABS: African American GFR (CKD) >90 (>60 ml/min/1.73 sqM); Blood Urea Nitrogen 19 mg/dL (7-17); Non-African American GFR(CKD) >90 (>60 ml/min/1.73 sqM)
--- NOTE | 2020-03-18 11:32 | CT ---
EXAMINATION TYPE: CT angio chest DATE OF EXAM: 03/18/2020 COMPARISON: 01/30/2020 HISTORY: 65-year-old female Shortness of breath. C78.7 I26.99 C79.51 TECHNIQUE: Contiguous axial scanning of the chest performed with IV Contrast, patient injected with 1 00 mL of Isovue 370. Coronal/sagittal MIP reconstructions performed. CT DLP: 109.4 mGycm Automated exposure control for dose reduction was used. FINDINGS: The heart is normal size with trace 4 mm thick anterior pericardial effusion. No flattening of the in terventricular septum or reflux of contrast into the hepatic veins. Aorta normal caliber of conventional chest branching anatomy. No definite thoracic lymphadenopathy. Satisfactory opacification of the pulmonary arterial system. The previously seen right lower lobar an d segmental branch emboli have cleared in the interval. No new pulmonary embolus is seen. New small to moderate left and small right pleural effusions with adjacent atelectasis. There is prominent consolidation in the periphery of the left lower lobe and also superior segment le ft lower lobe, new from prior exam. Mild biapical pleural-parenchymal scarring. Posterior right hepatic lobe lesion estimated at 4.8 cm versus 3.1 cm, previously. Anterior left hepa tic lobe lesion estimated at 3.9 cm versus 1.7 cm, previously. Main hepatic lesion estimated at 4.4 c m versus 2.6 cm, previously. Large right hepatic dome cyst measuring 4.2 cm is unchanged. Parapelvic cysts within the left kidney. Bones: Redemonstrated multiple lytic osseous lesions. Redemonstrated vertebral compression collapse o f T6 with extraosseous soft tissue extension into the ventral spinal canal causing mild canal narrowi ng. Narrowing seems to measure approximately 8 mm, not significantly changed. IMPRESSION: 1. NEW [id number] LEFT AND SMALL RIGHT PLEURAL EFFUSIONS WITH ADJACENT ATELECTASIS. NEW LARGE AREA OF AIR SPACE DISEASE PERIPHERALLY LOWER LOBE AND SUPERIOR SEGMENT LEFT LOWER LOBE. CORRELATION F OR PNEUMONIA. 2. INTERVAL CLEARANCE OF THE PREVIOUS RIGHT-SIDED LOBAR AND SEGMENTAL BRANCH EMBOLI. NO NEW PULMONARY EMBOLI ARE SEEN. 3. ENLARGING HEPATIC METASTASES. FOR EXAMPLE, IN THE POSTERIOR RIGHT LIVER LOBE, LESION MEASURES 4.8 CM VERSUS 3.1 CM, PREVIOUSLY. 4. REDEMONSTRATED DIFFUSE LYTIC OSSEOUS METASTATIC DISEASE. T6 PATHOLOGIC COMPRESSION COLLAPSE IS SIM ILAR IS SOME EXTRAOSSEOUS SOFT TISSUE EXTENSION INTO THE VENTRAL SPINAL CANAL CAUSING A MILD SPINA L CANAL STENOSIS HERE.
== END | disposition home or self-care (01) ==
LOC: RADCTMAIN 10:06
PROVIDERS: ATTEND Internal Medicine Hematology & Oncology
DX: J90 Pleural effusion, not elsewhere classified (principal); C78.7 Secondary malignant neoplasm of liver and intrahepatic bile duct; C79.51 Secondary malignant neoplasm of bone; R55 Syncope and collapse
CPT/HCPCS: 82565; 84520; 71275; Q9967

== ENCOUNTER → 2020-03-22 | Outpatient (CLI) | payer MEDICARE, BC ==
--- NOTE | 2020-03-22 13:46 | MR ---
EXAMINATION TYPE: MR brain wo/w con DATE OF EXAM: 03/22/2020 COMPARISON: MR brain 12/23/2019 HISTORY: C50.411 breast ca altered mental status TECHNIQUE: Multiplanar, multisequence images of the brain and brainstem is performed without and with IV contras t, utilizing 5.5 mL intravenous Gadavist . FINDINGS: Diffusion weighted images demonstrate no evidence of a recent infarct or other diffusion ab normality. There is no extra-axial fluid collection or significant interval change in white matter s ignal abnormality. The ventricular system and cisternal spaces are normal in size and appearance. T he brain volume is age appropriate. There is some inflammatory change in the temporal bone on the lef t. Midline structures demonstrate normal morphology. The craniocervical junction appears within normal limits. Post contrast images demonstrate no abnormal enhancement. The dural venous sinuses appear pa tent. The visualized sinuses are clear and the globes are intact. IMPRESSION: Metastasis are not evident. Abnormal signal within the temporal bone on the left may be r elated to inflammatory change, consider temporal bone CT, correlate to exclude mastoiditis, cholestea penny.
== END | disposition home or self-care (01) ==
LOC: RADMRIMAIN 10:17
PROVIDERS: ATTEND Internal Medicine Hematology & Oncology
DX: C50.411 Malignant neoplasm of upper-outer quadrant of right female breast (principal); R41.82 Altered mental status, unspecified
CPT/HCPCS: 70553; A9585

== ENCOUNTER 2020-03-29 08:50 | Emergency (ER) | payer MEDICARE, BC ==
[2020-03-29] MEDS ORDERED: SODIUM CHLORIDE 0.9% 1,000 ML IV STA (09:21)
[2020-03-29 09:56] LABS: Anisocytosis Marked; HCT 27.4 % (34.0-46.0); HGB 9.1 gm/dL (11.4-16.0); Hypochromasia Moderate; MCH 31.2 pg (25.0-35.0); MCHC 33.2 g/dL (31.0-37.0); MCV 93.8 fL (80.0-100.0); Macrocytosis Slight; Mean Platelet Volume 7.3; Platelet Count 74 k/uL (150-450); Poikilocytosis Moderate; RBC 2.92 m/uL (3.80-5.40); RDW 24.4 % (11.5-15.5)
[2020-03-29 10:07] LABS: Albumin 2.4 g/dL (3.5-5.0); Bilirubin, Conjugated 6.5 mg/dL (0.0-0.3); Bilirubin, Delta 2.1 mg/dL (0.0-0.2); Bilirubin,Unconjugated 1.3 mg/dL (0.0-1.1); Magnesium 3.5 mg/dL (1.6-2.3); Total Bilirubin 9.9 mg/dL (0.2-1.3); Total Protein 5.3 g/dL (6.3-8.2)
[2020-03-29 10:34] LABS: INR 3.9 (<1.2); Partial Thromboplastin Time 38.3 sec (22.0-30.0); Prothrombin Time 37.9 sec (9.0-12.0)
[2020-03-29 10:37] LABS: D-Dimer 15.26 mg/L FEU (<0.60)
[2020-03-29 10:38] LABS: Potassium 6.2 mmol/L (3.5-5.1)
[2020-03-29] MEDS ORDERED: SODIUM CHLORIDE 0.9% 1,000 ML IV ONE (10:38)
[2020-03-29] MEDS ORDERED: INSULIN REGULAR 100 UNIT/ML VIAL IV ONE (10:40)
[2020-03-29] MEDS ORDERED: DEXTROSE 50% SYRINGE 50 ML IVP STA (10:41)
[2020-03-29 11:00] LABS: Band Neutrophils % 2 %; Metamyelocytes % 3 %; Neutrophils % (M) 85 %; Nucleated Red Blood Cells 20 /100 WBC (0-0); Total Cells Counted 100
[2020-03-29 11:01] LABS: Lymphocytes # (M) 0.48 k/uL (1.0-4.8); Metamyelocytes # (M) 0.48 k/uL (0); Monocytes # (M) 1.13 k/uL (0-1.0); Polychromasia Present; WBC 16.1 k/uL (3.8-10.6)
[2020-03-29 11:02] LABS: RBC Fragments Present
[2020-03-29 11:04] LABS: Target Cells Present
[2020-03-29 11:05] LABS: Howell-Jolly Bodies Present
[2020-03-29 11:35] LABS: Appearance,Urine Clear (Clear); Bacteria,Urine Rare /hpf; Bilirubin,Urine Negative (Negative); Blood,Urine Small (Negative); Color,Urine Yellow; Glucose,Urine (UA) Negative (Negative); Ketones,Urine 1+ (Negative); Leukocyte Esterase,Urine Negative (Negative); Mucus,Urine Rare /hpf; Nitrite,Urine Negative (Negative); PH, Urine 5.5 (5.0-8.0); Protein,Urine Trace (Negative); RBC,Urine 1 /hpf (0-5); Specific Gravity,Urine 1.014 (1.001-1.035); Urobilinogen,Urine <2.0 mg/dL (<2.0); WBC,Urine 1 /hpf (0-5)
--- NOTE | 2020-03-29 11:48 | CT ---
EXAMINATION TYPE: CT brain pranay el DATE OF EXAM: 03/29/2020 COMPARISON: None HISTORY: weakness and shortness of breath. History of breast cancer. CT DLP: 1211.[address] of the brain was performed. The ventricles, basal cisterns and sulci overlying the cerebral convexities demonstrate mild enlargem ent. There is no evidence for intracranial hemorrhage or sulcal effacement. There is decreased attenuatio n about the periventricular white matter and deep white matter of both cerebral hemispheres, compatib le with chronic small vessel ischemia. No mass effects are seen. If symptoms persist consider MRI. Osseous calvarium is intact. IMPRESSION: 1. Age related atrophic and chronic small vessel ischemic change without acute intracranial process seen at this time. CT Cervical Spine: Unenhanced CT of the cervical spine was performed with bone and soft tissue window settings submitted . Coronal and sagittal reconstruction is obtained. There is normal alignment and prevertebral soft tissues. No evidence for acute cervical fracture . Multiple lytic lesions are noted throughout the cervical spine and upper thoracic spine. Most affecte d vertebral body isC3. Upper rib lesions noted as well. Scattered degenerative disc disease and spond ylosis. Biapical scarring. IMPRESSION: 1. No evidence for acute fracture or subluxation of the cervical spine. 2. Lytic lesions throughout the visualized cervical and upper thoracic segments as well as of several upper ribs. Patient has a history of breast carcinoma.
--- NOTE | 2020-03-29 11:54 | CT ---
EXAMINATION TYPE: CT abdomen pelvis wo con DATE OF EXAM: 03/29/2020 COMPARISON: 12/22/2019 HISTORY: Abdominal pain with shortness of breath. Patient has history of metastatic breast carcinoma CT DLP: 419.8 mGycm Examination of the solid and hollow viscera is limited given the lack of contrast. FINDINGS: LUNG BASES: Bilateral pleural effusions noted. Airspace consolidation left lower lobe may reflect pne umonia. Compressive atelectasis. LIVER/GB: The gallbladder is unremarkable. Multiple hepatic lesions are redemonstrated which are poor ly characterized on this unenhanced study although there appears to have been interval progression. G allstones difficult to exclude. Fluid about the liver edge noted. PANCREAS: No pancreatic mass identified. No inflammatory process seen. SPLEEN: No evidence for splenomegaly. No intrasplenic lesions seen. ADRENALS: No adrenal nodules identified. No evidence for thickening. KIDNEYS: No evidence for renal mass. No nephrolithiasis. No hydronephrosis. BOWEL: Appendix has a normal appearance. No evidence of bowel obstruction. No inflammatory process. Lymph nodes: No evidence for adenopathy greater than 1 cm. Abdominal aorta: Atheromatous changes seen. No evidence for aneurysm. Genital organs: There is evidence of pelvic ascites. Calcified uterine lesions noted. Stewart balloon c atheter in place. Other: Again noted are multiple low lytic lesions seen throughout the lumbar spine, pelvis and upper femora. There is superior endplate loss of height which has occurred in the interval at L2 bony lesio ns appear to have progressed in overall number. IMPRESSION: 1. Progressive bony metastatic disease. Superior endplate loss of height of L2 of uncertain age. This has occurred since prior study of 12/22/2019. 2. Basilar pleural effusions with infiltrate left lower lobe may reflect pneumonia or aspiration. 3. Progressive metastatic disease to the liver. 4. Mild ascites.
--- NOTE | 2020-03-29 12:02 | XR ---
EXAMINATION TYPE: XR chest 2V DATE OF EXAM: 03/29/2020 COMPARISON: 12/21/2019 HISTORY: Shortness of breath TECHNIQUE: Frontal and lateral views of the chest are obtained. FINDINGS: Scattered senescent parenchymal changes noted. Hyperinflation compatible with COPD. Infiltrate noted left midlung zone. Correlate for pneumonia. Heart size is stable. Mediastinal structures are stable and grossly unremarkable. No evidence for hilar prominence. Degenerative changes dorsal spine. IMPRESSION: 1. Infiltrate noted left midlung zone. Correlate for pneumonia.
[2020-03-29] MEDS ORDERED: AZITHROMYCIN 500 MG in SODIUM CHLORIDE 0.9% 250 ML IVPB STA (12:19)
[2020-03-29] MEDS ORDERED: cefTRIAXone IN SWFI 1,000 MG/10 ML SYRINGE IVP STA (12:19)
[2020-03-29 12:39] VITALS: TEMP 97.4
[2020-03-29] MEDS ORDERED: SODIUM CHLORIDE 0.9% 1,000 ML IV SCH (12:45)
--- NOTE | 2020-03-29 12:49 | ED ---
SOB HPI - General Chief Complaint: Shortness of Breath Stated Complaint: NANCY Time Seen by Provider: 03/29/20 09:00 Source: EMS Mode of arrival: EMS Limitations: altered mental status - History of Present Illness Initial Comments: Patient is a 65-year-old female past medical history of breast cancer with metastasis to the spine, ribs and liver who presents to the emergency room from home. states that she has been getting progressively weak over the past several weeks. She is also had increasing shortness of breath with lower extremity edema. The patient has had no by mouth intake. Patient is to be able to assist in transfers however she is to weak at this time to move herself. Patient was receiving started on new chemo medication last week. She follows in office with Dr. Givens. Review the patient's record demonstrates that she was recently diagnosed with a PE. She was started on [place]. Repeat chest CT was performed on the of this month which demonstrated clearance of the PE. The patient remains on Coumadin. She sustained a fall 3 days ago for which she fell and hit her lip. states that she did not lose consciousness. Because of her progressive weakness, called EMS. Patient noted be in a sinus tach. She is on morphine for pain at home. Patient cannot provide history and therefore history is obtained by - Related Data Home Medications Medication Instructions Recorded Confirmed Apixaban [Eliquis] 5 mg PO BID 03/22/20 03/29/20 Morphine Sulfate ER [Ms Contin] 15 mg PO BID 03/22/20 03/29/20 Prochlorperazine [Compazine] 10 mg PO Q6H PRN 03/22/20 03/29/20 levoFLOXacin 500 mg PO DAILY 03/22/20 03/29/20 [facility] Stool [place] 1 tab PO HS 03/29/20 03/29/20 Cyclobenzaprine [Flexeril] 5 mg PO TID 03/29/20 03/29/20 HYDROcodone/APAP 7.5-325MG [[place] 1 tab PO Q6H PRN 03/29/20 03/29/20 7.5-325] Omeprazole 40 mg PO DAILY PRN 03/29/20 03/29/20 Palbociclib [Ibrance] 125 mg PO DIRECTED 03/29/20 03/29/20 Triamcinolone 0.5% Cream [Kenalog 1 applic TOPICAL BID 03/29/20 03/29/20 0.5% Cream] Allergies Allergy/AdvReac Type Severity Reaction Status Date / Time dog dander Allergy Cough Verified 03/29/20 09:42 alpelisib [From Piqray] AdvReac Rash/Hives Verified 03/29/20 09:42 grass pollen AdvReac Wheezing Verified 03/29/20 09:42 Review of Systems ROS Statement: Those systems with pertinent positive or pertinent negative responses have been documented in the HPI. ROS Other: All systems not noted in ROS Statement are negative. Past Medical History Past Medical History: Asthma, Cancer Additional Past Medical History / Comment(s): metastatic breast CA History of Any Multi-Drug Resistant Organisms: None Reported Past Surgical History: Breast Surgery, Hernia Repair, Orthopedic Surgery, Tonsillectomy Additional Past Surgical History / Comment(s): L foot bunionectomy,. L hand ganglion cyst. BREAST BX x2. septum repair 2001. lymph node biopsy right arm pit 2018 Past Anesthesia/Blood Transfusion Reactions: No Reported Reaction Past Psychological History: No Psychological Hx Reported Past Alcohol Use History: None Reported Past Drug Use History: None Reported - Past Family History Mother Family Medical History: Cancer Additional Family Medical History / Comment(s): breast and uterine cancer. maternal grandmother breast and colon cancer Son(s) Family Medical History: Thyroid Disorder General Exam Limitations: altered mental status General appearance: lethargic, cachectic Head exam: Present: atraumatic, normocephalic Eye exam: Present: PERRL, EOMI, scleral icterus ENT exam: Present: mucous membranes dry Respiratory exam: Present: normal lung sounds bilaterally, accessory muscle use, decreased breath sounds Cardiovascular Exam: Present: normal rhythm, tachycardia GI/Abdominal exam: Present: soft Neurological exam: Present: altered, other (weak) Psychiatric exam: Present: flat affect Skin exam: Present: other (jaundice) Course Vital Signs 03/29/20 03/29/20 03/29/20 08:57 09:16 09:32 Temperature 98.4 F Pulse Rate 125 H Respiratory 18 20 Rate Blood Pressure 92/58 87/48 O2 Sat by Pulse 98 98 Oximetry 03/29/20 03/29/20 03/29/20 09:33 10:07 10:45 Temperature Pulse Rate 120 H 114 H 111 H Respiratory 18 20 16 Rate Blood Pressure 98/50 94/53 99/55 O2 Sat by Pulse 98 98 Oximetry 03/29/20 03/29/20 03/29/20 11:33 12:37 13:20 Temperature 97.4 F L Pulse Rate 113 H 115 H 108 H Respiratory 18 18 18 Rate Blood Pressure 100/57 89/58 101/60 O2 Sat by Pulse 98 99 98 Oximetry 03/29/20 03/29/20 03/29/20 14:27 14:48 15:24 Temperature Pulse Rate 103 H 103 H 100 Respiratory 22 20 16 Rate Blood Pressure 91/59 102/59 94/59 O2 Sat by Pulse 97 98 97 Oximetry - Reevaluation(s) Reevaluation #1: Spoke with Dr. Lagunas who states that the patient is okay to go to the telemetry unit and she is DNR/DNI 03/29/20 13:11 Medical Decision Making - Medical Decision Making The patient is placed into room 3. A thorough history and physical exam is performed. Peripheral IV is established. Laboratory studies were conducted. The blood cell count 16.1. Hemoglobin 9.1. Platelet 74. Patient does have elevation in liver enzymes. INR 3.9. D-dimer 15.26. Potassium 6.2. Creatinine 2. Lactic acid 9.3. Total bili 0.9. Conjugated bilirubin 6.5 BNP elevated at 1220. CT of the patient's head and cervical spine is performed because of the patient's blunt head trauma. Demonstrates chronic small vessel ischemic change without acute intracranial process. CT of the neck demonstrates lytic lesions throughout the visualized or focal and upper thoracic segments as well as several upper ribs. No acute fractures. CT the abdomen and pelvis is performed which demonstrates progressive bony metastatic disease. 6. Complete loss of L2. [place] pleural effusions with infiltrate left lower lobe. Progressive metastatic disease to liver. Chest x-ray was performed which does demonstrate infiltrate in the left midlung. I did provide the patient with a dose of Rocephin and azithromycin. I also should patient hyperkalemia with a amp of dextrose and 10 units of insulin. Patient provided with 2 L of normal s guilherme followed by 130 mL per hour. She is given 50 g fentanyl for pain. The patient's blood pressure remains low after fluid administration. I discussed goals of care with patient's who states that his is a DNR/DNI. I discussed the case with Dr. Clement who agreed to admit the patient. She does present to the emergency department and evaluates the patient. Patient continues to have ongoing low blood pressure. She discusses with patient's in regards to signing on hospice for which he did agree to. Hospice nurse does present to the ER to evaluate the patient. She is currently pending transfer to the floor - Lab Data Result diagrams: 03/29/20 09:28 03/29/20 09:28 Lab Results 03/29/20 03/29/20 03/29/20 Range/Units 09:28 09: 09:28 WBC 16.1 H (3.8-10.6) k/uL RBC 2.92 L (3.80-5.40) m/uL Hgb 9.1 L (11.4-16.0) gm/dL Hct 27.4 L (34.0-46.0) % MCV 93.8 (80.0-100.0) fL MCH 31.2 (25.0-35.0) pg MCHC 33.2 (31.0-37.0) g/dL RDW 24.4 H (11.5-15.5) % Plt Count 74 L (150-450) k/uL Neutrophils % Not Reportable Neutrophils % (Manual) 85 % Band Neutrophils % 2 % Lymphocytes % Not Reportable Lymphocytes % (Manual) 3 % Monocytes % Not Reportable Monocytes % (Manual) 7 % Eosinophils % Not Reportable Basophils % Not Reportable Metamyelocytes % 3 % Neutrophils # Not Reportable Neutrophils # (Manual) 14.00 H (1.3-7.7) k/uL Lymphocytes # Not Reportable Lymphocytes # (Manual) 0.48 L (1.0-4.8) k/uL Monocytes # Not Reportable Monocytes # (Manual) 1.13 H (0-1.0) k/uL Eosinophils # Not Reportable Basophils # Not Reportable Metamyelocytes # (Man) 0.48 H (0) k/uL Nucleated RBCs 20 H (0-0) /100 WBC Manual Slide Review Performed Polychromasia Present Hypochromasia Moderate Poikilocytosis Moderate Anisocytosis Marked Macrocytosis Slight Target Cells Present [place] Bodies Present Fragmented RBCs Present PT 37.9 H (9.0-12.0) sec INR 3.9 H (<1.2) APTT 38.3 H (22.0-30.0) sec D-Dimer 15.26 H (<0.60) mg/L FEU Sodium 134 L (137-145) mmol/L Potassium 6.2 H* (3.5-5.1) mmol/L Chloride 104 (98-107) mmol/L Carbon Dioxide 17 L (22-30) mmol/L Anion Gap 13 mmol/L BUN 111 H* (7-17) mg/dL Creatinine 2.09 H (0.52-1.04) mg/dL Est GFR (CKD-EPI)AfAm 28 (>60 ml/min/1.73 sqM) Est GFR (CKD-EPI)NonAf 24 (>60 ml/min/1.73 sqM) Glucose 95 (74-99) mg/dL Lactic Ac Sepsis Rflx Plasma Lactic Acid Timothy (0.7-2.0) mmol/L Calcium 8.0 L (8.4-10.2) mg/dL Magnesium 3.5 H (1.6-2.3) mg/dL Total Bilirubin 9.9 H (0.2-1.3) mg/dL Conjugated Bilirubin 6.5 H (0.0-0.3) mg/dL Unconjugated Bilirubin 1.3 H (0.0-1.1) mg/dL Delta Bilirubin 2.1 H (0.0-0.2) mg/dL AST 601 H (14-36) U/L ALT 123 H (4-34) U/L Alkaline Phosphatase 241 H (38-126) U/L Creatine Kinase 277 H (30-135) U/L Troponin I (0.000-0.034) ng/mL NT-Pro-B Natriuret Pep pg/mL Total Protein 5.3 L (6.3-8.2) g/dL Albumin 2.4 L (3.5-5.0) g/dL Urine Color Urine Appearance (Clear) Urine pH (5.0-8.0) Ur Specific [place] (1.001-1.035) Urine Protein (Negative) Urine Glucose (UA) (Negative) Urine Ketones (Negative) Urine Blood (Negative) Urine Nitrite (Negative) Urine Bilirubin (Negative) Urine Urobilinogen (<2.0) mg/dL Ur Leukocyte Esterase (Negative) Urine RBC (0-5) /hpf Urine WBC (0-5) /hpf Urine Bacteria (None) /hpf Urine Mucus (None) /hpf Coronavirus (PCR) (Not Detected) 03/29/20 03/29/20 03/29/20 Range/Units 09:28 09:28 09:28 WBC (3.8-10.6) k/uL RBC (3.80-5.40) m/uL Hgb (11.4-16.0) gm/dL Hct (34.0-46.0) % MCV (80.0-100.0) fL MCH (25.0-35.0) pg MCHC (31.0-37.0) g/dL RDW (11.5-15.5) % Plt Count (150-450) k/uL Neutrophils % Neutrophils % (Manual) % Band Neutrophils % % Lymphocytes % Lymphocytes % (Manual) % Monocytes % Monocytes % (Manual) % Eosinophils % Basophils % Metamyelocytes % % Neutrophils # Neutrophils # (Manual) (1.3-7.7) k/uL Lymphocytes # Lymphocytes # (Manual) (1.0-4.8) k/uL Monocytes # Monocytes # (Manual) (0-1.0) k/uL Eosinophils # Basophils # Metamyelocytes # (Man) (0) k/uL Nucleated RBCs (0-0) /100 WBC Manual Slide Review Polychromasia Hypochromasia Poikilocytosis Anisocytosis Macrocytosis Target Cells [place] Bodies Fragmented RBCs PT (9.0-12.0) sec INR (<1.2) APTT (22.0-30.0) sec D-Dimer (<0.60) mg/L FEU Sodium (137-145) mmol/L Potassium (3.5-5.1) mmol/L Chloride (98-107) mmol/L Carbon Dioxide (22-30) mmol/L Anion Gap mmol/L BUN (7-17) mg/dL Creatinine (0.52-1.04) mg/dL Est GFR (CKD-EPI)AfAm (>60 ml/min/1.73 sqM) Est GFR (CKD-EPI)NonAf (>60 ml/min/1.73 sqM) Glucose (74-99) mg/dL Lactic Ac Sepsis Rflx Plasma Lactic Acid Timothy 9.3 H* (0.7-2.0) mmol/L Calcium (8.4-10.2) mg/dL Magnesium (1.6-2.3) mg/dL Total Bilirubin (0.2-1.3) mg/dL Conjugated Bilirubin (0.0-0.3) mg/dL Unconjugated Bilirubin (0.0-1.1) mg/dL Delta Bilirubin (0.0-0.2) mg/dL AST (14-36) U/L ALT (4-34) U/L Alkaline Phosphatase (38-126) U/L Creatine Kinase (30-135) U/L Troponin I 0.111 H* (0.000-0.034) ng/mL NT-Pro-B Natriuret Pep 1220 pg/mL Total Protein (6.3-8.2) g/dL Albumin (3.5-5.0) g/dL Urine Color Urine Appearance (Clear) Urine pH (5.0-8.0) Ur Specific [place] (1.001-1.035) Urine Protein (Negative) Urine Glucose (UA) (Negative) Urine Ketones (Negative) Urine Blood (Negative) Urine Nitrite (Negative) Urine Bilirubin (Negative) Urine Urobilinogen (<2.0) mg/dL Ur Leukocyte Esterase (Negative) Urine RBC (0-5) /hpf Urine WBC (0-5) /hpf Urine Bacteria (None) /hpf Urine Mucus (None) /hpf Coronavirus (PCR) (Not Detected) 03/29/20 03/29/20 03/29/20 Range/Units 10:37 10:56 13:05 WBC (3.8-10.6) k/uL RBC (3.80-5.40) m/uL Hgb (11.4-16.0) gm/dL Hct (34.0-46.0) % MCV (80.0-100.0) fL MCH (25.0-35.0) pg MCHC (31.0-37.0) g/dL RDW (11.5-15.5) % Plt Count (150-450) k/uL Neutrophils % Neutrophils % (Manual) % Band Neutrophils % % Lymphocytes % Lymphocytes % (Manual) % Monocytes % Monocytes % (Manual) % Eosinophils % Basophils % Metamyelocytes % % Neutrophils # Neutrophils # (Manual) (1.3-7.7) k/uL Lymphocytes # Lymphocytes # (Manual) (1.0-4.8) k/uL Monocytes # Monocytes # (Manual) (0-1.0) k/uL Eosinophils # Basophils # Metamyelocytes # (Man) (0) k/uL Nucleated RBCs (0-0) /100 WBC Manual Slide Review Polychromasia Hypochromasia Poikilocytosis Anisocytosis Macrocytosis Target Cells [place] Bodies Fragmented RBCs PT (9.0-12.0) sec INR (<1.2) APTT (22.0-30.0) sec D-Dimer (<0.60) mg/L FEU Sodium (137-145) mmol/L Potassium (3.5-5.1) mmol/L Chloride (98-107) mmol/L Carbon Dioxide (22-30) mmol/L Anion Gap mmol/L BUN (7-17) mg/dL Creatinine (0.52-1.04) mg/dL Est GFR (CKD-EPI)AfAm (>60 ml/min/1.73 sqM) Est GFR (CKD-EPI)NonAf (>60 ml/min/1.73 sqM) Glucose (74-99) mg/dL Lactic Ac Sepsis Rflx Y Plasma Lactic Acid Timothy 10.6 H* (0.7-2.0) mmol/L Calcium (8.4-10.2) mg/dL Magnesium (1.6-2.3) mg/dL Total Bilirubin (0.2-1.3) mg/dL Conjugated Bilirubin (0.0-0.3) mg/dL Unconjugated Bilirubin (0.0-1.1) mg/dL Delta Bilirubin (0.0-0.2) mg/dL AST (14-36) U/L ALT (4-34) U/L Alkaline Phosphatase (38-126) U/L Creatine Kinase (30-135) U/L Troponin I (0.000-0.034) ng/mL NT-Pro-B Natriuret Pep pg/mL Total Protein (6.3-8.2) g/dL Albumin (3.5-5.0) g/dL Urine Color Yellow Urine Appearance Clear (Clear) Urine pH 5.5 (5.0-8.0) Ur Specific [place] 1.014 (1.001-1.035) Urine Protein Trace H (Negative) Urine Glucose (UA) Negative (Negative) Urine Ketones 1+ H (Negative) Urine Blood Small H (Negative) Urine Nitrite Negative (Negative) Urine Bilirubin Negative (Negative) Urine Urobilinogen <2.0 (<2.0) mg/dL Ur Leukocyte Esterase Negative (Negative) Urine RBC 1 (0-5) /hpf Urine WBC 1 (0-5) /hpf Urine Bacteria Rare H (None) /hpf Urine Mucus Rare H (None) /hpf Coronavirus (PCR) (Not Detected) 03/29/20 03/29/20 Range/Units 13:40 14:04 WBC (3.8-10.6) k/uL RBC (3.80-5.40) m/uL Hgb (11.4-16.0) gm/dL Hct (34.0-46.0) % MCV (80.0-100.0) fL MCH (25.0-35.0) pg MCHC (31.0-37.0) g/dL RDW (11.5-15.5) % Plt Count (150-450) k/uL Neutrophils % Neutrophils % (Manual) % Band Neutrophils % % Lymphocytes % Lymphocytes % (Manual) % Monocytes % Monocytes % (Manual) % Eosinophils % Basophils % Metamyelocytes % % Neutrophils # Neutrophils # (Manual) (1.3-7.7) k/uL Lymphocytes # Lymphocytes # (Manual) (1.0-4.8) k/uL Monocytes # Monocytes # (Manual) (0-1.0) k/uL Eosinophils # Basophils # Metamyelocytes # (Man) (0) k/uL Nucleated RBCs (0-0) /100 WBC Manual Slide Review Polychromasia Hypochromasia Poikilocytosis Anisocytosis Macrocytosis Target Cells [place] Bodies Fragmented RBCs PT (9.0-12.0) sec INR (<1.2) APTT (22.0-30.0) sec D-Dimer (<0.60) mg/L FEU Sodium (137-145) mmol/L Potassium (3.5-5.1) mmol/L Chloride (98-107) mmol/L Carbon Dioxide (22-30) mmol/L Anion Gap mmol/L BUN (7-17) mg/dL Creatinine (0.52-1.04) mg/dL Est GFR (CKD-EPI)AfAm (>60 ml/min/1.73 sqM) Est GFR (CKD-EPI)NonAf (>60 ml/min/1.73 sqM) Glucose (74-99) mg/dL Lactic Ac Sepsis Rflx Y Plasma Lactic Acid Timothy (0.7-2.0) mmol/L Calcium (8.4-10.2) mg/dL Magnesium (1.6-2.3) mg/dL Total Bilirubin (0.2-1.3) mg/dL Conjugated Bilirubin (0.0-0.3) mg/dL Unconjugated Bilirubin (0.0-1.1) mg/dL Delta Bilirubin (0.0-0.2) mg/dL AST (14-36) U/L ALT (4-34) U/L Alkaline Phosphatase (38-126) U/L Creatine Kinase (30-135) U/L Troponin I (0.000-0.034) ng/mL NT-Pro-B Natriuret Pep pg/mL Total Protein (6.3-8.2) g/dL Albumin (3.5-5.0) g/dL Urine Color Urine Appearance (Clear) Urine pH (5.0-8.0) Ur Specific [place] (1.001-1.035) Urine Protein (Negative) Urine Glucose (UA) (Negative) Urine Ketones (Negative) Urine Blood (Negative) Urine Nitrite (Negative) Urine Bilirubin (Negative) Urine Urobilinogen (<2.0) mg/dL Ur Leukocyte Esterase (Negative) Urine RBC (0-5) /hpf Urine WBC (0-5) /hpf Urine Bacteria (None) /hpf Urine Mucus (None) /hpf Coronavirus (PCR) Not Detected (Not Detected) - EKG Data EKG Comments: EKG demonstrates a sinus tachycardia with a ventricular rate of 135. PA interval 136. QRS is 78. QTC 447. No acute ST segment elevation or depressions concerning for ischemic changes Disposition Clinical Impression: Hyperkalemia, Dehydration, Metastatic breast cancer, Liver metastases, Anemia, CAP (community acquired pneumonia) Disposition: ADMITTED IP TO THIS HOSP Condition: Serious Is patient prescribed a controlled substance at d/c from ED?: No Referrals: None,Stated [Primary Care Provider] - 1-2 days Decision to Admit Reason: Admit from EC Decision Date: 03/29/20 Decision Time: 12:49
[2020-03-29] MEDS ORDERED: fentaNYL (PF) 50 MCG/ML 2 ML AMP IVP PRN (13:05)
[2020-03-29] MEDS ORDERED: NALOXONE 0.4 MG/ML 1 ML VIAL IV PRN (13:08)
[2020-03-29] MEDS: fentaNYL (PF) 50 MCG/ML 2 ML AMP IVP ONE ×2 (13:14→14:45)
--- NOTE | 2020-03-29 14:20 | US ---
EXAMINATION TYPE: US gallbladder DATE OF EXAM: 03/29/2020 COMPARISON: CT CLINICAL HISTORY: pain, liver failure. Personal history of metastatic breast cancer EXAM MEASUREMENTS: Liver Length: 18.4 cm Gallbladder Wall: 0.8 cm CBD: 0.7 cm Right Kidney: 10.4 x 4.5 x 4.6 cm Technically difficult study, patient unable to take a breath or roll up. Patient very weak. Pancreas: not visualized Liver: Enlarged with multiple lesions throughout. Gallbladder: Markedly thickened wall, no stones seen. This appears decompressed. Evidence for sonographic Belle's sign: Patient tender all over. CBD: measures 0.7 cm Right Kidney: No hydronephrosis or masses seen IMPRESSION: 1. Markedly thickened gallbladder wall and a decompressed gallbladder. Clinical correlation recommend ed for cholecystitis. 2. Heterogenous appearance to the liver with multiple masses suspicious for metastatic disease.
--- NOTE | 2020-03-29 15:23 | P.HPIM ---
History of Present Illness H&P Date: 03/29/20 Please disregard this chart. Patient and family elected to sign on with hospice from the ED. Past Medical History Past Medical History: Asthma, Cancer Additional Past Medical History / Comment(s): metastatic breast CA History of Any Multi-Drug Resistant Organisms: None Reported Past Surgical History: Breast Surgery, Hernia Repair, Orthopedic Surgery, Tonsillectomy Additional Past Surgical History / Comment(s): L foot bunionectomy,. L hand ganglion cyst. BREAST BX x2. septum repair 2001. lymph node biopsy right arm pit 2018 Past Anesthesia/Blood Transfusion Reactions: No Reported Reaction Past Psychological History: No Psychological Hx Reported Past Alcohol Use History: None Reported Past Drug Use History: None Reported - Past Family History Mother Family Medical History: Cancer Additional Family Medical History / Comment(s): breast and uterine cancer. maternal grandmother breast and colon cancer Son(s) Family Medical History: Thyroid Disorder Medications and Allergies Home Medications Medication Instructions Recorded Confirmed Type Apixaban [Eliquis] 5 mg PO BID 03/22/20 03/29/20 History Morphine Sulfate ER [Ms Contin] 15 mg PO BID 03/22/20 03/29/20 History Prochlorperazine [Compazine] 10 mg PO Q6H PRN 03/22/20 03/29/20 History levoFLOXacin 500 mg PO DAILY 03/22/20 03/29/20 [address] [facility] 1 tab PO HS 03/29/20 03/29/20 History Cyclobenzaprine [Flexeril] 5 mg PO TID 03/29/20 03/29/20 History HYDROcodone/APAP 7.5-325MG [[place] 1 tab PO Q6H PRN 03/29/20 03/29/20 History 7.5-325] Omeprazole 40 mg PO DAILY PRN 03/29/20 03/29/20 History Palbociclib [Ibrance] 125 mg PO DIRECTED 03/29/20 03/29/20 History Triamcinolone 0.5% Cream [Kenalog 1 applic TOPICAL BID 03/29/20 03/29/20 History 0.5% Cream] Allergies Allergy/AdvReac Type Severity Reaction Status Date / Time dog dander Allergy Cough Verified 03/29/20 09:42 alpelisib [From Piqray] AdvReac Rash/Hives Verified 03/29/20 09:42 grass pollen AdvReac Wheezing Verified 03/29/20 09:42 Physical Exam Osteopathic Statement: *. No significant issues noted on an osteopathic structural exam other than those noted in the History and Physical/Consult. Vitals: Vital Signs Temp Pulse Resp BP Pulse Ox 03/29/20 12:37 97.4 F L 115 H 18 89/58 99 03/29/20 11:33 113 H 18 100/57 98 03/29/20 10:45 111 H 16 99/55 98 03/29/20 10:07 114 H 20 94/53 03/29/20 09:33 120 H 18 98/50 98 03/29/20 09:32 20 03/29/20 09:16 87/48 98 03/29/20 08:57 98.4 F 125 H 18 92/58 98 Intake and Output 03/28/20 03/29/20 03/29/20 22:59 06:59 14:59 Other: Weight 57.516 kg Results CBC & Chem 7: 03/29/20 09:28 03/29/20 09:28 Labs: Abnormal Lab Results - Last 24 Hours (Table) 03/29/20 03/29/20 03/29/20 Range/Units 09:28 09:28 09:28 WBC 16.1 H (3.8-10.6) k/uL RBC 2.92 L (3.80-5.40) m/uL Hgb 9.1 L (11.4-16.0) gm/dL Hct 27.4 L (34.0-46.0) % RDW 24.4 H (11.5-15.5) % Plt Count 74 L (150-450) k/uL Neutrophils # (Manual) 14.00 H (1.3-7.7) k/uL Lymphocytes # (Manual) 0.48 L (1.0-4.8) k/uL Monocytes # (Manual) 1.13 H (0-1.0) k/uL Metamyelocytes # (Man) 0.48 H (0) k/uL Nucleated RBCs 20 H (0-0) /100 WBC PT 37.9 H (9.0-12.0) sec INR 3.9 H (<1.2) APTT 38.3 H (22.0-30.0) sec D-Dimer 15.26 H (<0.60) mg/L FEU Sodium 134 L (137-145) mmol/L Potassium 6.2 H* (3.5-5.1) mmol/L Carbon Dioxide 17 L (22-30) mmol/L BUN 111 H* (7-17) mg/dL Creatinine 2.09 H (0.52-1.04) mg/dL Plasma Lactic Acid Timothy (0.7-2.0) mmol/L Calcium 8.0 L (8.4-10.2) mg/dL Magnesium 3.5 H (1.6-2.3) mg/dL Total Bilirubin 9.9 H (0.2-1.3) mg/dL Conjugated Bilirubin 6.5 H (0.0-0.3) mg/dL Unconjugated Bilirubin 1.3 H (0.0-1.1) mg/dL Delta Bilirubin 2.1 H (0.0-0.2) mg/dL AST 601 H (14-36) U/L ALT 123 H (4-34) U/L Alkaline Phosphatase 241 H (38-126) U/L Creatine Kinase 277 H (30-135) U/L Troponin I (0.000-0.034) ng/mL Total Protein 5.3 L (6.3-8.2) g/dL Albumin 2.4 L (3.5-5.0) g/dL Urine Protein (Negative) Urine Ketones (Negative) Urine Blood (Negative) Urine Bacteria (None) /hpf Urine Mucus (None) /hpf 03/29/20 03/29/20 03/29/20 Range/Units 09:28 09:28 10:56 WBC (3.8-10.6) k/uL RBC (3.80-5.40) m/uL Hgb (11.4-16.0) gm/dL Hct (34.0-46.0) % RDW (11.5-15.5) % Plt Count (150-450) k/uL Neutrophils # (Manual) (1.3-7.7) k/uL Lymphocytes # (Manual) (1.0-4.8) k/uL Monocytes # (Manual) (0-1.0) k/uL Metamyelocytes # (Man) (0) k/uL Nucleated RBCs (0-0) /100 WBC PT (9.0-12.0) sec INR (<1.2) APTT (22.0-30.0) sec D-Dimer (<0.60) mg/L FEU Sodium (137-145) mmol/L Potassium (3.5-5.1) mmol/L Carbon Dioxide (22-30) mmol/L BUN (7-17) mg/dL Creatinine (0.52-1.04) mg/dL Plasma Lactic Acid Timothy 9.3 H* (0.7-2.0) mmol/L Calcium (8.4-10.2) mg/dL Magnesium (1.6-2.3) mg/dL Total Bilirubin (0.2-1.3) mg/dL Conjugated Bilirubin (0.0-0.3) mg/dL Unconjugated Bilirubin (0.0-1.1) mg/dL Delta Bilirubin (0.0-0.2) mg/dL AST (14-36) U/L ALT (4-34) U/L Alkaline Phosphatase (38-126) U/L Creatine Kinase (30-135) U/L Troponin I 0.111 H* (0.000-0.034) ng/mL Total Protein (6.3-8.2) g/dL Albumin (3.5-5.0) g/dL Urine Protein Trace H (Negative) Urine Ketones 1+ H (Negative) Urine Blood Small H (Negative) Urine Bacteria Rare H (None) /hpf Urine Mucus Rare H (None) /hpf
[2020-03-29 15:26] VITALS: BP 94/59; PULSE 100; RESP 16
--- NOTE | 2020-03-29 15:32 | P.PN ---
Progress Note - Text Progress Note Date: 03/29/20 Advanced Care Planning: Diagnoses: Metastatic breast cancer, HIPOLITO, liver failure, L2 compression fx with intractable pain. Discussion: Person(s) present and participating in discussion: Edouard Summary: Initially I came to [facility] in the ER for admission due to acute kidney injury and liver failure as well as hypovolemic shock. She has minimally participating in conversation and her call provides most of the history and information about her current state of health. Apparently she started Ibrance on 03/24/[address] Givens's office to see if it would help slow her rapidly progressive Breast Cancer. Before starting this new treatment she was already having difficulty with ambulation and exertional dyspnea at about 20 feet. She was having some decreased appetite. since starting on her new therapy she can no longer even go from sitting to standing without shortness of breath, she is taking is a couple of bites a couple times of day and has had a rapid decline. She received 2L if IVF fluids in the emergency department and continued to be hypotensive with blood pressure as low as 75/41. We discussed that she is a DNR/DNI. Along with Dr. Kingston we discussed options of a central line and vasopressors. Edouard asked us to keep her comfortable and we talked about the option of hospice. At that point in time Jacquie spoke up and said yes. I called Ariana Goss Np at Dr. Givens's office who stated hospice would be appropriate at this point in her disease. At this time in alignment with her wishes she will be admitted to hospice. A total of 32 minutes of face to face time was spent discussing advanced care planning.
== END 2020-03-29 16:12 | disposition other institution (70) ==
LOC: EC 08:50 → 3SCARD 13:08 → UNDOADMIN 13:08 → 5NMEDONC 15:32 → 3SCARD 15:32
DX: C50.919 Malignant neoplasm of unspecified site of unspecified female breast (principal); C78.7 Secondary malignant neoplasm of liver and intrahepatic bile duct; D64.9 Anemia, unspecified; J18.9 Pneumonia, unspecified organism; E86.0 Dehydration; E87.5 Hyperkalemia; N17.9 Acute kidney failure, unspecified; K72.90 Hepatic failure, unspecified without coma; M48.56XA Collapsed vertebra, not elsewhere classified, lumbar region, initial encounter for fracture; Z66 Do not resuscitate; Z79.01 Long term (current) use of anticoagulants; Z79.899 Other long term (current) drug therapy; Z91.09 Other allergy status, other than to drugs and biological substances; Z91.048 Other nonmedicinal substance allergy status; Z88.8 Allergy status to other drugs, medicaments and biological substances
CPT/HCPCS: 99285; 96365; 96366; 96375 ×3; 96361 ×4; 36415; 93005; 85379; 83880; 80053; 82248; 82550; 83605; 83735; 84484; 85025; 85610; 85730; 81001; 87040; 71046; 76705; 72125; 70450; 74176; U0003; J0456; J0696; J3010

== ENCOUNTER 2020-03-29 15:20 | Inpatient (IN) | payer MEDICAID ==
[2020-03-29] MEDS ORDERED: ACETAMINOPHEN SUPPOSITORY 650 MG SUPP RECTAL PRN (15:22)
[2020-03-29] MEDS ORDERED: SCOPOLAMINE 1.5MG/72HR PATCH TRANSDERM PRN (15:22)
[2020-03-29] MEDS ORDERED: ATROPINE OPHTH SOLN 1% 5ML BTL SUBLINGUAL PRN (15:22)
[2020-03-29] MEDS ORDERED: MORPHINE SULFATE 2 MG/ML SYRINGE IV PRN (15:22)
[2020-03-29] MEDS ORDERED: SODIUM CHLORIDE 0.9% 1,000 ML IV SCH (15:30)
--- NOTE | 2020-03-29 16:08 | P.HPIM ---
History of Present Illness H&P Date: 03/29/20 Chief Complaint: abdominal pain Patient is a 65-year-old female with metastatic breast cancer to the liver, bone, and lymph nodes who presented to the emergency department with abdominal pain and shortness of breath. On arrival to the ER she was tachycard ic with pulse of 125 and hypotensive with a blood pressure of 92/58. She is requiring 4 L nasal cannula up from her 2 L at baseline. Laboratory analysis had several derangements including await blood flow count of 16.1, hemoglobin 9.1, platelets 74, INR 3.9, d-dimer 15.26, sodium 134, potassium 6.2, carbon dioxide 17, BUN 111, creatinine 2.09, lactic acid 9.3, calcium 8, magnesium 3.5, total bilirubin 9.9, AST 601, ALT 123, alkaline phosphatase 241, CK 277, troponin 0.11, albumin 2.4. Urinalysis was positive for ketones. Chest x-ray showed left lung infiltrate. CT abdomen and pelvis showed progressive bony metastatic disease as appear endplate loss of L2 of uncertain age, bibasilar pleural effusions with left lower lobe infiltrate, progressive metastatic disease to the liver, and mild ascites. CT head and spine showed no evidence for acute fracture or subluxation, lytic lesions throughout the visualized cervical and upper thoracic segments as well as several of the ribs, in no acute intracranial process. In the ER she was started on Rocephin and Zithromax. She was given an amp of D50 along with insulin for her hyperkalemia. She was also given 2 L of normal saline. Her blood pressure continued to be marginal and she was having contiued pain. We had a angel luis discussion Edouard her and Jacquie at [facility] and she elected to sign on to [facility]. She currently is pain free after receiving fentanyl. She indicates a dry mouth, deneis thrist. She denies any nausea or anxiety. Per her huband taking medications until this morning. Prior to March 24 was able to get into wheelchair without difficulty breath, out of breath at about 20 feet. Since that time worsening weakness, fatigue, appetite. Currently unable to stand/sit without getting short of breath. Unable to move feet or bear weight due to weakness. Declining appetitie, yesterday few bites of food and sips of water. Review of Systems Unable to obtain as patient not answering all questions at this point in time Past Medical History Past Medical History: Asthma, Cancer Additional Past Medical History / Comment(s): metastatic breast CA, Pulmonary embolism, History of Any Multi-Drug Resistant Organisms: None Reported Past Surgical History: Breast Surgery, Hernia Repair, Orthopedic Surgery, Tonsillectomy Additional Past Surgical History / Comment(s): L foot bunionectomy,. L hand ganglion cyst. BREAST BX x2. septum repair 2001. lymph node biopsy right arm pit 2018 Past Anesthesia/Blood Transfusion Reactions: No Reported Reaction Past Psychological History: No Psychological Hx Reported Past Alcohol Use History: None Reported Past Drug Use History: None Reported - Past Family History Mother Family Medical History: Cancer Additional Family Medical History / Comment(s): breast and uterine cancer. maternal grandmother breast and colon cancer Son(s) Family Medical History: Thyroid Disorder Medications and Allergies Home Medications Medication Instructions Recorded Confirmed Type Apixaban [Eliquis] 5 mg PO BID 03/22/20 03/29/20 History Morphine Sulfate ER [Ms Contin] 15 mg PO BID 03/22/20 03/29/20 History Prochlorperazine [Compazine] 10 mg PO Q6H PRN 03/22/20 03/29/20 History levoFLOXacin 500 mg PO DAILY 03/22/20 03/29/20 [address] [facility] St[facility] 1 tab PO HS 03/29/20 03/29/20 History Cyclobenzaprine [Flexeril] 5 mg PO TID 03/29/20 03/29/20 History HYDROcodone/APAP 7.5-325MG [Pansey 1 tab PO Q6H PRN 03/29/20 03/29/20 History 7.5-325] Omeprazole 40 mg PO DAILY PRN 03/29/20 03/29/20 History Palbociclib [Ibrance] 125 mg PO DIRECTED 03/29/20 03/29/20 History Triamcinolone 0.5% Cream [Kenalog 1 applic TOPICAL BID 03/29/20 03/29/20 History 0.5% Cream] Allergies Allergy/AdvReac Type Severity Reaction Status Date / Time dog dander Allergy Cough Verified 03/29/20 09:42 alpelisib [From Piqray] AdvReac Rash/Hives Verified 03/29/20 09:42 grass pollen AdvReac Wheezing Verified 03/29/20 09:42 Physical Exam Osteopathic Statement: *. No significant issues noted on an osteopathic structural exam other than those noted in the History and Physical/Consult. Vitals: Intake and Output 03/29/20 03/29/20 03/29/20 06:59 14:59 22:59 Other: Weight 57.5 kg General: ill appearing, moderate distress, appears at stated age, cachetic with temporal wasting, Derm: Jaundice, multiple areas of ecchymosis, warm, dry Head: atraumatic, normocephalic, symmetric Eyes: EOMI, no lid lag, +icteric sclera, pupils equal round reactive to light ENT: Nose and ears atraumatic, no thrush, no pharyngeal erythema Neck: No thyromegaly, no cervical lymphadenopathy, trachea midline, supple Mouth: lips cracking a dry, mucus membranes dry Cardiovascular: S1S2 tachy, no murmur, faint posterior tibial pulse bilateral, no edema, capillary refill > 2 seconds Lungs: Decreased bs bilaterally, no rhonchi, no rales, no wheeze, + accessory muscle use Abdominal: soft, +tender to palpation diffusely, no guarding, no appreciable organomegaly, normal bowel sounds Ext: + gross muscle atrophy, muscle strength muscle strength 3-4 out of 5 in all 4 extremities, no contractures Neuro: CN II-XI grossly intact, light touch intact all 4 extremities Psych: awake, oriented to situation, flat affect Thrombosis Risk Factor Assmnt - DVT/VTE Prophylaxis DVT/VTE Prophylaxis: Low risk, early ambulation encouraged Assessment and Plan Assessment: Pneumonia with sepsis, failed out patient treatment Hypovolemic shock Acute liver failure with known metastatic disease to the liver HIPOLITO with metabolic acidosis and hyperkalemia due dehydration Lactic acidosis Couagulopathy due to liver failure Breast Cancer Stage IV with mets to liver, bone and lymphnodes L2 end plate deformity due to lytic lesion- suspect compression fracture Anemia and thrombocytopenia Asthma without exacerbation troponin elevation Admit to hospice. Will try IVP morphine if inadequate will quickly transition to morphine gtt, ativan for agitation, IV fluids for KVO, Tylenol for fevers, scopolamine/atropine for secretions. D/W and hospice nursing. A total of 45 minutes was spent on the care of this complex patient more than 50% of the time was spent in counseling and care coordination.
[2020-03-29] MEDS: LORazepam 2 MG/ML INJ IV PRN (18:01)
[2020-03-29] MEDS ORDERED: MORPHINE SULFATE (100 MG/2 ML) 100 MG in SODIUM CHLORIDE 0.9% 100 ML IV SCH (18:30)
[2020-03-30] MEDS: LORazepam 2 MG/ML INJ IV PRN ×3 (00:46→05:42)
--- NOTE | 2020-04-20 16:04 | P.DS ---
Providers Date of admission: 03/29/20 15:27 Expected date of discharge: 03/30/20 Attending physician: Desirae Clement DO Primary care physician: Stated None Hospital Course: Patient is a 65-year-old female with metastatic breast cancer to the liver, bone, and lymph nodes who presented to the emergency department with abdominal pain and shortness of breath. On arrival to the ER she was tachycardic with pulse of 125 and hypotensive with a blood pressure of 92/58. She is requiring 4 L nasal cannula up from her 2 L at baseline. Laboratory analysis had several derangements including WBC count of 16.1, hemoglobin 9.1, platelets 74, INR 3.9, D-dimer 15.26, sodium 134, potassium 6.2, carbon dioxide 17, BUN 111, creatinine 2.09, lactic acid 9.3, calcium 8, magnesium 3.5, total bilirubin 9.9, AST 601, ALT 123, alkaline phosphatase 241, CK 277, troponin 0.11, albumin 2.4. Urinalysis was positive for ketones. Chest x-ray showed left lung infiltrate. CT abdomen and pelvis showed progressive bony metastatic disease as appear endplate loss of L2 of uncertain age, bibasilar pleural effusions with left lower lobe infiltrate, progressive metastatic disease to the liver, and mild ascites. CT head and spine showed no evidence for acute fracture or subluxation, lytic lesions throughout the visualized cervical and upper thoracic segments as well as several of the ribs, in no acute intracranial process. In the ER she was started on Rocephin and Zithromax. She was given an amp of D50 along with insulin for her hyperkalemia. She was also given 2 L of normal saline. Her blood pressure continued to be marginal and she was having continued pain. The primary team had a angel luis discussion Edouard her and Jac[facility] and she elected to sign on to [facility]. Comfort orders were placed. Patient on 03/30/2020 prior to being seen. Discharge diagnosis: Pneumonia with sepsis, failed outpatient treatment Hypovolemic shock Acute liver failure with known metastatic disease to the liver HIPOLITO with metabolic acidosis and hyperkalemia due dehydration Lactic acidosis Coagulopathy due to liver failure Breast Cancer Stage IV with mets to liver, bone and lymphnodes L2 end plate deformity due to lytic lesion- suspect compression fracture Anemia and thrombocytopenia Asthma without exacerbation Troponin elevation Patient Condition at Discharge: Critical Plan - Discharge Summary New Discharge Prescriptions: No Action Prochlorperazine [Compazine] 10 mg PO Q6H PRN PRN Reason: Nausea levoFLOXacin 500 mg PO DAILY Apixaban [Eliquis] 5 mg PO BID Morphine Sulfate ER [Ms Contin] 15 mg PO BID Omeprazole 40 mg PO DAILY PRN PRN Reason: Heartburn Cyclobenzaprine [Flexeril] 5 mg PO TID Palbociclib [Ibrance] 125 mg PO DIRECTED HYDROcodone/APAP 7.5-325MG [Dorothy 7.5-325] 1 tab PO Q6H PRN PRN Reason: Pain [facility] Stool Soft[facility] 1 tab PO HS Triamcinolone 0.5% Cream [Kenalog 0.5% Cream] 1 applic TOPICAL BID Discharge Medication List Apixaban [Eliquis] 5 mg PO BID 03/22/20 [History] Morphine Sulfate ER [Ms Contin] 15 mg PO BID 03/22/20 [History] Prochlorperazine [Compazine] 10 mg PO Q6H PRN 03/22/20 [History] levoFLOXacin 500 mg PO DAILY 03/22/20 [History] [facility] Stool Soft[facility] 1 tab PO HS 03/29/20 [History] Cyclobenzaprine [Flexeril] 5 mg PO TID 03/29/20 [History] HYDROcodone/APAP 7.5-325MG [Dorothy 7.5-325] 1 tab PO Q6H PRN 03/29/20 [History] Omeprazole 40 mg PO DAILY PRN 03/29/20 [History] Palbociclib [Ibrance] 125 mg PO DIRECTED 03/29/20 [History] Triamcinolone 0.5% Cream [Kenalog 0.5% Cream] 1 applic TOPICAL BID 03/29/20 [History] Discharge Disposition: - Preliminary Cause of Preliminary Cause of : Sepsis, Pneumonia
== END 2020-03-30 11:16 | disposition expired | DRG 951 ==
LOC: 5NMEDONC 15:27
PROVIDERS: ADMIT Internal Medicine; ATTEND Internal Medicine
DX: Z51.5 Encounter for palliative care (principal); A41.9 Sepsis, unspecified organism; J18.9 Pneumonia, unspecified organism; K72.00 Acute and subacute hepatic failure without coma; C78.7 Secondary malignant neoplasm of liver and intrahepatic bile duct; C79.51 Secondary malignant neoplasm of bone; C77.9 Secondary and unspecified malignant neoplasm of lymph node, unspecified; E87.2 Acidosis; N17.9 Acute kidney failure, unspecified; J90 Pleural effusion, not elsewhere classified; D68.9 Coagulation defect, unspecified; R57.1 Hypovolemic shock; D69.6 Thrombocytopenia, unspecified; C50.919 Malignant neoplasm of unspecified site of unspecified female breast; Z66 Do not resuscitate; E87.5 Hyperkalemia; J45.909 Unspecified asthma, uncomplicated; E86.0 Dehydration; D64.9 Anemia, unspecified; Z86.711 Personal history of pulmonary embolism; Z79.01 Long term (current) use of anticoagulants; Z79.891 Long term (current) use of opiate analgesic; Z79.899 Other long term (current) drug therapy; Z88.8 Allergy status to other drugs, medicaments and biological substances; Z80.0 Family history of malignant neoplasm of digestive organs; Z80.49 Family history of malignant neoplasm of other genital organs; Z80.3 Family history of malignant neoplasm of breast; Z83.49 Family history of other endocrine, nutritional and metabolic diseases